=== PATIENT | male | born 1945 | race American Indian/Alaskan Native ===

== ENCOUNTER 2022-07-29 10:11 | Inpatient (IN) | payer MEDICARE ==
[2022-07-29] MEDS ORDERED: SODIUM CHLORIDE 0.9% 500 ML IVPB IV ONE (12:37)
--- NOTE | 2022-07-29 12:50 | Emergency Department Report ---
ED General Adult HPI - General Chief complaint: Dyspnea/Respdistress Stated complaint: GIA Time Seen by Provider: 07/29/22 11:33 Source: patient, EMS Mode of arrival: Stretcher Limitations: Physical Limitation - History of Present Illness Initial comments: The patient presents to the emergency department via EMS for difficulty in breathing that is been present for the last couple of days. The patient was recently discharged from [facility] on the third of this month. Patient's states that patient has had difficulty in breathing without chest pain for the last couple of days. Patient is now able to add to history. Initial evaluation the patient is on O2 for comfort and has a blood pressure of 97/76. -: unknown Severity scale (0 -10): 0 Consistency: constant Improves with: none Worsens with: none Associated Symptoms: denies other symptoms Treatments Prior to Arrival: none - Related Data Allergies Allergy/AdvReac Type Severity Reaction Status Date / Time Penicillins AdvReac Unknown Verified 07/29/22 10:26 ED Review of Systems ROS: Stated complaint: GIA Other details as noted in HPI Comment: All other systems reviewed and negative ED Physical Exam - General Limitations: Physical Limitation General appearance: obtunded - Head Head exam: Present: atraumatic, normocephalic - Eye Eye exam: Present: normal appearance, PERRL, EOMI - ENT ENT exam: Present: mucous membranes dry - Respiratory Respiratory exam: Present: decreased breath sounds. Absent: respiratory distress - Cardiovascular Cardiovascular Exam: Present: normal rhythm, tachycardia - GI/Abdominal GI/Abdominal exam: Present: soft, normal bowel sounds. 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 Absent: rash ED Course Vital Signs 07/29/22 07/29/22 07/29/22 10:23 11:26 11:30 Temperature 97.9 F Pulse Rate 111 H 112 H Respiratory 14 25 H Rate Blood Pressure 103/72 Blood Pressure 114/76 [Left] O2 Sat by Pulse 100 96 100 Oximetry 07/29/22 07/29/22 07/29/22 12:30 13:01 13:31 Temperature Pulse Rate 111 H 109 H 130 H Respiratory 21 48 H 43 H Rate Blood Pressure 102/76 99/76 100/74 Blood Pressure [Left] O2 Sat by Pulse 100 100 100 Oximetry 07/29/22 07/29/22 07/29/22 13:59 14:01 14:31 Temperature Pulse Rate 107 H 106 H 125 H Respiratory 21 37 H 36 H Rate Blood Pressure 109/78 116/80 Blood Pressure 109/78 [Left] O2 Sat by Pulse 100 100 100 Oximetry 07/29/22 07/29/22 07/29/22 15:01 15:24 15:31 Temperature 97.5 F L Pulse Rate 127 H 133 H 102 H Respiratory 32 H 18 34 H Rate Blood Pressure 119/82 126/89 Blood Pressure 126/89 [Left] O2 Sat by Pulse 100 99 98 Oximetry 07/29/22 07/29/22 07/29/22 15:40 16:00 16:01 Temperature 97.5 F L Pulse Rate 102 H 130 H Respiratory 45 H 40 H Rate Blood Pressure 108/87 Blood Pressure 124/68 [Left] O2 Sat by Pulse 99 97 Oximetry 07/29/22 07/29/22 07/29/22 16:31 17:01 17:18 Temperature 97.8 F Pulse Rate 136 H 136 H 104 H Respiratory 30 H 23 18 Rate Blood Pressure 115/94 130/89 Blood Pressure 124/60 [Left] O2 Sat by Pulse 100 99 99 Oximetry ED Medical Decision Making - Lab Data Result diagrams: 07/29/22 14:57 07/29/22 14:57 Lab Results 07/29/22 07/29/22 07/29/22 Range/Units 14:57 14:57 14:57 WBC 10.9 (4.5-11.0) K/mm3 RBC 3.47 L (3.65-5.03) M/mm3 Hgb 9.5 L (11.8-15.2) gm/dl Hct 29.9 L (35.5-45.6) % MCV 86 (84-94) fl MCH 27 L (28-32) pg MCHC 32 (32-34) % RDW 16.7 H (13.2-15.2) % Plt Count 333 (140-440) K/mm3 Lymph % (Auto) 16.0 (13.4-35.0) % [place] % (Auto) 10.2 H (0.0-7.3) % Eos % (Auto) 0.2 (0.0-4.3) % Baso % (Auto) 0.4 (0.0-1.8) % Lymph # (Auto) 1.7 (1.2-5.4) K/mm3 [place] # (Auto) 1.1 H (0.0-0.8) K/mm3 Eos # (Auto) 0.0 (0.0-0.4) K/mm3 Baso # (Auto) 0.0 (0.0-0.1) K/mm3 Seg Neutrophils % 73.2 H (40.0-70.0) % Seg Neutrophils # 8.0 H (1.8-7.7) K/mm3 Sodium 139 (137-145) mmol/L Potassium 5.2 H (3.6-5.0) mmol/L Chloride 104.5 (98-107) mmol/L Carbon Dioxide 17 L (22-30) mmol/L Anion Gap 23 mmol/L BUN 74 H (9-20) mg/dL Creatinine 2.4 H (0.8-1.3) mg/dL Estimated GFR 27 ml/min BUN/Creatinine Ratio 31 % Glucose 113 H (75-100) mg/dL Lactic Acid 2.90 H* (0.7-2.0) mmol/L Calcium 9.4 (8.4-10.2) mg/dL Magnesium 2.90 H (1.7-2.3) mg/dL Total Bilirubin 1.60 H (0.1-1.2) mg/dL AST 148 H (5-40) units/L ALT 111 H (7-56) units/L Alkaline Phosphatase 255 H (35-129) units/L Troponin T 0.484 H* (0.00-0.029) ng/mL NT-Pro-B Natriuret Pep 92354 H (0-900) pg/mL Total Protein 7.4 (6.3-8.2) g/dL Albumin 3.7 L (3.9-5) g/dL Albumin/Globulin Ratio 1.0 % Triglycerides 59 (2-149) mg/dL Cholesterol 108 (50-199) mg/dL LDL Cholesterol Direct 68 (50-130) mg/dL HDL Cholesterol 35 L (40-59) mg/dL Cholesterol/HDL Ratio 3.08 % Urine Color (Yellow) Urine Turbidity (Clear) Specific [place] (Man) (1.003-1.030) Ur Protein (Man) (Negative) mg/dL Ur Ketones (Man) (Negative) Ur Nitrite (Man) (Negative) Urine Bilirubin (Man) (Negative) Urine Ictotest Leukocyte Esterase (Man) (Negative) Urine WBC (Auto) (0.0-6.0) /HPF Urine RBC (Auto) (0.0-6.0) /HPF Urine RBC (Manual) (Negative) Urine WBC Clumps /HPF Ur Yeast w Hyphae /HPF Urine Yeast (Budding) /HPF 07/29/22 07/29/22 Range/Units 17:01 Unknown WBC (4.5-11.0) K/mm3 RBC (3.65-5.03) M/mm3 Hgb (11.8-15.2) gm/dl Hct (35.5-45.6) % MCV (84-94) fl MCH (28-32) pg MCHC (32-34) % RDW (13.2-15.2) % Plt Count (140-440) K/mm3 Lymph % (Auto) (13.4-35.0) % [place] % (Auto) (0.0-7.3) % Eos % (Auto) (0.0-4.3) % Baso % (Auto) (0.0-1.8) % Lymph # (Auto) (1.2-5.4) K/mm3 [place] # (Auto) (0.0-0.8) K/mm3 Eos # (Auto) (0.0-0.4) K/mm3 Baso # (Auto) (0.0-0.1) K/mm3 Seg Neutrophils % (40.0-70.0) % Seg Neutrophils # (1.8-7.7) K/mm3 Sodium (137-145) mmol/L Potassium (3.6-5.0) mmol/L Chloride (98-107) mmol/L Carbon Dioxide (22-30) mmol/L Anion Gap mmol/L BUN (9-20) mg/dL Creatinine (0.8-1.3) mg/dL Estimated GFR ml/min BUN/Creatinine Ratio % Glucose (75-100) mg/dL Lactic Acid 3.60 H* (0.7-2.0) mmol/L Calcium (8.4-10.2) mg/dL Magnesium (1.7-2.3) mg/dL Total Bilirubin (0.1-1.2) mg/dL AST (5-40) units/L ALT (7-56) units/L Alkaline Phosphatase (35-129) units/L Troponin T (0.00-0.029) ng/mL NT-Pro-B Natriuret Pep (0-900) pg/mL Total Protein (6.3-8.2) g/dL Albumin (3.9-5) g/dL Albumin/Globulin Ratio % Triglycerides (2-149) mg/dL Cholesterol (50-199) mg/dL LDL Cholesterol Direct (50-130) mg/dL HDL Cholesterol (40-59) mg/dL Cholesterol/HDL Ratio % Urine Color Yellow (Yellow) Urine Turbidity Turbid (Clear) Specific [place] (Man) 1.020 (1.003-1.030) Ur Protein (Man) 2+ (Negative) mg/dL Ur Ketones (Man) 5mg/dl (Negative) Ur Nitrite (Man) Negative (Negative) Urine Bilirubin (Man) Negative (Negative) Urine Ictotest Not Reportable Leukocyte Esterase (Man) Moderate (Negative) Urine WBC (Auto) > 182.0 H (0.0-6.0) /HPF Urine RBC (Auto) > 182.0 (0.0-6.0) /HPF Urine RBC (Manual) 3+ (Negative) Urine WBC Clumps 3+ /HPF Ur Yeast w Hyphae 3+ /HPF Urine Yeast (Budding) 2+ /HPF - EKG Data -: EKG Interpreted by Id EKG shows normal: sinus rhythm Rate: tachycardia - Radiology Data Radiology results: report reviewed - Medical Decision Making IV fluids and IV antibiotics initiated Critical Care Time: Yes Critical care time in (mins) excluding proc time.: 35 Critical care attestation.: If time is entered above; I have spent that time in minutes in the direct care of this critically ill patient, excluding procedure time. ED Disposition Clinical Impression: GIBRAN (acute kidney injury), Sepsis, CHF (congestive heart failure) Disposition: 09 ADMITTED INPATIENT Is pt being admited?: Yes Does the pt Need Aspirin: No Condition: Stable Referrals: THEODORE OBRIEN MD [Primary Care Provider] - 3-5 Days
--- NOTE | 2022-07-29 13:08 | XRay Report ---
CHEST 1 VIEW 07/29/2022 12:43 PM INDICATION / CLINICAL INFORMATION: sob. COMPARISON: None available. FINDINGS: SUPPORT DEVICES: None. HEART / MEDIASTINUM: Borderline to mild cardiomegaly LUNGS / PLEURA: Moderate pulmonary venous congestion and small pleural effusions are suspected. Mild bibasilar atelectasis. No pneumothorax. ADDITIONAL FINDINGS: No significant additional findings. IMPRESSION: 1. Mild CHF Signer Name: Harvey Segovia Jr, MD Signed: 07/29/2022 1:03 PM Workstation Name: [id number]
[2022-07-29 15:26] LABS: Basophils % (Auto) 0.4 % (0.0-1.8); Eosinophils % (Auto) 0.2 % (0.0-4.3); Hematocrit 29.9 % (35.5-45.6); Hemoglobin 9.5 gm/dl (11.8-15.2); Lymphocytes # (Auto) 1.7 K/mm3 (1.2-5.4); Mean Corpuscular HGB Conc 32 % (32-34); Mean Corpuscular Volume 86 fl (84-94); Monocytes # (Auto) 1.1 K/mm3 (0.0-0.8); Monocytes % (Auto) 10.2 % (0.0-7.3); Platelet Count 333 K/mm3 (140-440); Red Blood Count 3.47 M/mm3 (3.65-5.03); Red Cell Distribution Width 16.7 % (13.2-15.2)
[2022-07-29 15:45] LABS: Albumin 3.7 g/dL (3.9-5); Calcium 9.4 mg/dL (8.4-10.2)
[2022-07-29 15:49] LABS: RBC,Urine > 182.0 /HPF (0.0-6.0); WBC,Urine > 182.0 /HPF (0.0-6.0)
[2022-07-29 15:50] LABS: Color,Urine Yellow (Yellow)
[2022-07-29 16:26] LABS: Chol/HDL Ratio 3.08 %
[2022-07-29] MEDS ORDERED: SODIUM CHLORIDE 0.9% 1000 ML 1,000 ML IV ONE (16:31)
[2022-07-29] MEDS: SODIUM CHLORIDE 0.9% 1000 ML 1,000 ML IV ONE ×4 (17:04→17:21)
--- NOTE | 2022-07-29 17:22 | History and Physical Report ---
History of Present Illness Chief complaint: I do not feel good and I am short of breath History of present illness: 76 YO Male with Vascular Dementia, Cerebral Atherosclerosis presents ED for evaluation. Patient reports "I do not feel good and I am short of breath. Patient provides minimal history and is assisted by his and providing history who was at bedside during exam and interview. Patient states that he has experienced generalized weakness, subjective fever, and shortness of breath over the past few days with persistent symptoms over the same timeframe. Patient acknowledges decreased exercise tolerance, dyspnea on exertion, tension at rest, orthopnea, paroxysmal nocturnal dyspnea, subjective fever, subjective weight gain, as well as lower extremity edema. EMS was notified and upon arriva l the patient was found to be in distress with a pulse oximetry of 88% on room air. Patient was placed on submental oxygen and transported to [facility] for further care and evaluation of the aforementioned symptoms. The patient was seen and evaluated in the emergency department. All lab and imaging studies reviewed. Patient found to have a pulse oximetry of 87% on room air which is consistent with acute hypoxemic respiratory failure. Patient also found to have urinary tract infection complicated by sepsis, metabolic acidosis, toxic metabolic encephalopathy, GIBRAN with ATN, as well as symptoms and lab findings consistent with CHF decompensation. Patient admitted to IMCU and initiated on sepsis protocol as well as CHF protocol. Patient denies chills, chest pain, palpitation, productive cough, skin rash, recent contact, known exposure to COVID-19. No prior admission for review. No medication listed at time of admission for reconciliation. Advanced care planning conducted in ED. Past History Past Medical History: other (See HPI) Past Surgical History: No surgical history, Other (Reviewed) Social history: , lives with family Family history: hypertension Medications and Allergies Allergies Allergy/AdvReac Type Severity Reaction Status Date / Time Penicillins AdvReac Unknown Verified 07/29/22 10:26 Active Meds: Active Medications Sodium Chloride (Nacl 0.9% 1000 Ml) 1,000 mls @ 999 mls/hr IV BOLUS ONE Stop: 07/29/22 17:31 Last Admin: 07/29/22 17:21 Dose: Not Given Sodium Chloride (Nacl 0.9% 1000 Ml) 1,000 mls @ 999 mls/hr IV BOLUS ONE Stop: 07/29/22 17:31 Last Admin: 07/29/22 17:21 Dose: Not Given Sodium Chloride (Nacl 0.9% 1000 Ml) 1,000 mls @ 999 mls/hr IV BOLUS ONE Stop: 07/29/22 17:31 Last Admin: 07/29/22 17:04 Dose: 999 mls/hr Review of Systems Constitutional: weight gain, fever, weakness, no weight loss, no chills Ears, nose, mouth and throat: no ear discharge, no tinnitis, no decreased hearing, no nose pain, no nasal discharge Cardiovascular: orthopnea, shortness of breath, dyspnea on exertion, paroxysmal nocturnal dyspnea, decreased exercise tolerance, no chest pain Respiratory: no cough, no cough with sputum, no excessive sputum, no shortness of breath Gastrointestinal: no abdominal pain, no vomiting, no diarrhea, no constipation Genitourinary Male: no hematuria, no flank pain, no discharge, no urinary hesitancy, no nocturia, no incontinence Rectal: no pain, no incontinence, no bleeding Musculoskeletal: no neck pain, no shooting arm pain, no shooting leg pain Integumentary: no rash, no redness, no sores, no wounds, no boils Neurological: no head injury, no paralysis, no parathesias, no numbness, no tingling, no syncope Psychiatric: no anxiety, no memory loss, no sleep disturbances, no insomnia, no change in appetite Endocrine: no cold intolerance, no polyphagia, no polyuria, no excessive sweating, no weight change Hematologic/Lymphatic: no easy bleeding Allergic/Immunologic: no allergic rhinitis, no wheezing Exam - Constitutional Vitals: Temp Pulse Resp BP Pulse Ox 97.8 F 104 H 18 124/60 99 07/29/22 17:18 07/29/22 17:18 07/29/22 17:18 07/29/22 17:18 07/29/22 17:18 General appearance: Present: mild distress - EENT Eyes: Present: PERRL ENT: hearing intact, clear oral mucosa - Neck Neck: Present: supple, normal ROM, masses or JVD - Respiratory Respiratory effort: normal Respiratory: bilateral: CTA - Cardiovascular Heart Sounds: Present: S1 & S2. Absent: rub, click - Extremities Extremities: pulses symmetrical, No edema Extremity abnormal: edema Peripheral Pulses: within normal limits - Abdominal General gastrointestinal: Present: soft, non-tender, non-distended, normal bowel sounds Male genitourinary: Present: normal - Integumentary Integumentary: Present: clear, warm, dry - Musculoskeletal Musculoskeletal: gait normal, strength equal bilaterally - Psychiatric Psychiatric: appropriate mood/affect, intact judgment & insight - Neurologic Neurologic: CNII-XII intact, moves all extremities HEART Score - HEART Score Troponin: Troponin T 0.484 ng/mL (0.00-0.029) H* 07/29/22 14:57 Results - Labs CBC & Chem 7: 07/29/22 14:57 07/29/22 14:57 Labs: Abnormal lab results 07/29/22 07/29/22 07/29/22 Range/Units 14:57 14:57 14:57 RBC 3.47 L (3.65-5.03) M/mm3 Hgb 9.5 L (11.8-15.2) gm/dl Hct 29.9 L (35.5-45.6) % MCH 27 L (28-32) pg RDW 16.7 H (13.2-15.2) % [place] % (Auto) 10.2 H (0.0-7.3) % [place] # (Auto) 1.1 H (0.0-0.8) K/mm3 Seg Neutrophils % 73.2 H (40.0-70.0) % Seg Neutrophils # 8.0 H (1.8-7.7) K/mm3 Potassium 5.2 H (3.6-5.0) mmol/L Carbon Dioxide 17 L (22-30) mmol/L BUN 74 H (9-20) mg/dL Creatinine 2.4 H (0.8-1.3) mg/dL Glucose 113 H (75-100) mg/dL Lactic Acid 2.90 H* (0.7-2.0) mmol/L Magnesium 2.90 H (1.7-2.3) mg/dL Total Bilirubin 1.60 H (0.1-1.2) mg/dL AST 148 H (5-40) units/L ALT 111 H (7-56) units/L Alkaline Phosphatase 255 H (35-129) units/L Troponin T 0.484 H* (0.00-0.029) ng/mL NT-Pro-B Natriuret Pep 02372 H (0-900) pg/mL Albumin 3.7 L (3.9-5) g/dL HDL Cholesterol 35 L (40-59) mg/dL Urine WBC (Auto) (0.0-6.0) /HPF 07/29/22 Range/Units Unknown RBC (3.65-5.03) M/mm3 Hgb (11.8-15.2) gm/dl Hct (35.5-45.6) % MCH (28-32) pg RDW (13.2-15.2) % [place] % (Auto) (0.0-7.3) % [place] # (Auto) (0.0-0.8) K/mm3 Seg Neutrophils % (40.0-70.0) % Seg Neutrophils # (1.8-7.7) K/mm3 Potassium (3.6-5.0) mmol/L Carbon Dioxide (22-30) mmol/L BUN (9-20) mg/dL Creatinine (0.8-1.3) mg/dL Glucose (75-100) mg/dL Lactic Acid (0.7-2.0) mmol/L Magnesium (1.7-2.3) mg/dL Total Bilirubin (0.1-1.2) mg/dL AST (5-40) units/L ALT (7-56) units/L Alkaline Phosphatase (35-129) units/L Troponin T (0.00-0.029) ng/mL NT-Pro-B Natriuret Pep (0-900) pg/mL Albumin (3.9-5) g/dL HDL Cholesterol (40-59) mg/dL Urine WBC (Auto) > 182.0 H (0.0-6.0) /HPF Assessment and Plan - Patient Problems (1) Sepsis Current Visit: Yes Status: Acute Plan to address problem: Sepsis protocol: Chest x-ray, urinalysis, CBC, CMP, IV antibiotic therapy, IV for resuscitation therapy, monitor urine output culture, monitor fluid balance, maintain mean arterial pressure greater than equal to 65, admit to IMCU. (2) Acute hypoxemic respiratory failure Current Visit: Yes Status: Acute Plan to address problem: Chest x-ray, supplemental oxygen, nebulizer therapy, noninvasive positive pressure ventilation as clinically indicated, (3) UTI (urinary tract infection) Current Visit: Yes Status: Acute Qualifiers: Encounter type: initial encounter Plan to address problem: Urinalysis, IV antibiotic therapy. (4) Metabolic acidosis Current Visit: Yes Status: Acute Plan to address problem: Treat sepsis, IV fluid resuscitation therapy as clinically indicated, BMP, repeat BMP in a.m. (5) Cardiorenal syndrome Current Visit: Yes Status: Acute Qualifiers: Heart failure presence: with heart failure Plan to address problem: Nephrology team consulted, afterload reduction, supportive care. (6) Vascular dementia Current Visit: Yes Status: Acute Plan to address problem: Verbal prompting, verbal redirection, benzodiazepine therapy as clinically indicated. (7) Cerebral atherosclerosis Current Visit: Yes Status: Acute Plan to address problem: Antiplatelet therapy as clinically indicated, supportive care. (8) Acute kidney injury (GIBRAN) with acute tubular necrosis (ATN) Current Visit: Yes Status: Acute Plan to address problem: IV fluid resuscitation therapy, BMP, repeat BMP in a.m. to monitor serum creatinine as well as GFR, nephrology team consulted. (9) DVT prophylaxis Current Visit: Yes Status: Acute Plan to address problem: SCDs bilateral lower extremities while in bed (10) Advance care planning Current Visit: Yes Status: Acute Plan to address problem: Disease education data, care plan discussed, diagnosis discussed, prognosis discussed, patient is full code. +30 minutes. (11) Preventative health care Current Visit: Yes Status: Acute Plan to address problem: Patient and family counseled regarding home safety precautions, supportive care, risk factor reduction, outpatient follow-up with primary care physician for all age and risk factor appropriate screening test. +30 minutes.
[2022-07-29] MEDS ORDERED: oxyCODONE /ACETAMINOPHEN 5-325MG TAB PO PRN (17:23)
[2022-07-29] MEDS ORDERED: ACETAMINOPHEN 325 MG TAB PO PRN ×2 (17:23→17:27)
[2022-07-29] MEDS ORDERED: HYDROmorphone 0.5 MG/0.5 ML INJ IV PRN ×2 (17:23→17:27)
[2022-07-29] MEDS ORDERED: ALBUTEROL 2.5 MG/3 ML NEBU IH PRN (17:23)
[2022-07-29] MEDS ORDERED: SODIUM CHLORIDE 0.9% 1000 ML IV SOLN IV ONE (17:27)
[2022-07-29] MEDS: FUROSEMIDE 20 MG/2 ML INJ IV SCH (18:46)
[2022-07-30 00:28] LABS: ABG HCO3 13.1 mmol/L (20.0-26.0); ABG Methemoglobin 0.4 % (0.0-1.5); ABG Oxygen Saturation 97.9 % (95.0-99.0); ABG PCO2 23.7 mm Hg; ABG PH 7.361 pH Units (7.350-7.450)
[2022-07-30 04:32] LABS: Basophils % (Auto) 0.2 % (0.0-1.8); Eosinophils % (Auto) 0.2 % (0.0-4.3); Hematocrit 28.4 % (35.5-45.6); Hemoglobin 9.4 gm/dl (11.8-15.2); Lymphocytes # (Auto) 1.2 K/mm3 (1.2-5.4); Mean Corpuscular HGB Conc 33 % (32-34); Mean Corpuscular Volume 85 fl (84-94); Monocytes % (Auto) 9.5 % (0.0-7.3); Platelet Count 280 K/mm3 (140-440); Red Blood Count 3.33 M/mm3 (3.65-5.03); Red Cell Distribution Width 16.8 % (13.2-15.2)
[2022-07-30 05:02] LABS: Albumin 3.6 g/dL (3.9-5)
[2022-07-30] MEDS: FUROSEMIDE 20 MG/2 ML INJ IV SCH ×2 (06:06→18:37)
--- NOTE | 2022-07-30 07:59 | Progress Note ---
Assessment and Plan Assessment and plan: History of present illness: 76 YO Male with Vascular Dementia, Cerebral Atherosclerosis presents ED for evaluation. Patient reports "I do not feel good and I am short of breath. Patient provides minimal history and is assisted by his and providing history who was at bedside during exam and interview. Patient states that he has experienced generalized weakness, subjective fever, and shortness of breath over the past few days with persistent symptoms over the same timeframe. Patient acknowledges decreased exercise tolerance, dyspnea on exertion, tension at rest, orthopnea, paroxysmal nocturnal dyspnea, subjective fever, subjective weight gain, as well as lower extremity edema. EMS was notified and upon arrival the patient was found to be in distress with a pulse oximetry of 88% on room air. Patient was placed on submental oxygen and transported to [facility] for further care and evaluation of the aforementioned symptoms. The patient was seen and evaluated in the emergency department. All lab and imaging studies reviewed. Patient found to have a pulse oximetry of 87% on room air which is consistent with acute hypoxemic respiratory failure. Patient also found to have urinary tract infection complicated by sepsis, metabolic acidosis, toxic metabolic encephalopathy, GIBRAN with ATN, as well as symptoms and lab findings consistent with CHF decompensation. Patient admitted to IM and initiated on sepsis protocol as well as CHF protocol. Patient denies chills, chest pain, palpitation, productive cough, skin rash, recent contact, known exposure to C OVID-19. No prior admission for review. No medication listed at time of admission for reconciliation. Advanced care planning conducted in ED. Assessment and Plan: #Sepsis POA #Urinary tract infection - LA 4.2, tachycardic, source urinary - UA wbc: 182 - AB.36/23/107/13 on 21%fio2 - levaquin IV for empiric tx. allergy to PCN noteds - IVF - Bcx, UCx #Acute hypoxic respiratory failure #Chronic Congestive heart Failure - currently on 2l/min nc. - cxr: mild chf - resume home lasix - echo pending #Acute kidney injury with acute tubular necrosis #Metabolic acidosis #Cardiorenal syndrome #hyperkalemia - IVF rehydration - Cr: 2.4 on admisison - sodium bicarb gtt x 1 bag ordered - nephrology consultation - trend serial bmp. - renal US: negative for acute findings - cr 5.5, tx with kionex, insulin #Transaminitis - monitor - avoid hepatotoxins. #Vascular dementia #Cerebral atherosclerosis #Type 2 Diabetes with hyperglycemia - takes hanna and hadley per - SSI and lantus while hospitalized dispo: transfer to floor. The high probability of a clinically significant, sudden or life threatening deterioration of the [multi] system(s) required my full and direct attention, intervention and personal management. The aggregate critical care time was [60] minutes. This time is in addition to time spent performing reported procedures but includes the following: [x] Data Review and interpretation [x] Patient assessment and monitoring of vital signs [x] Documentation [x] Medication orders and management History Interval history: Resting comfortably on bed side encounter. Patient has a clear history of dementia and only able to communicate simple wishes. Patient present at bedside and able to provide medical background. Per patient was hospitalized at [facility] approximately 1 month ago. He was hospitalized for hematuria at the time and was incidentally found to have congestive heart jimmy lure. He was treated with Lasix and discharged. Hospitalist Physical - Physical exam Narrative exam: Physical Exam: VITAL SIGNS: Reviewed. GENERAL: The patient appears normally developed, Vital signs as documented. HEAD: No signs of head trauma. EYES: Pupils are equal. Extraocular motions intact. EARS: Hearing grossly intact. MOUTH: Oropharynx is normal. NECK: No adenopathy, no JVD. CHEST: Chest with clear breath sounds bilaterally. No wheezes, rales, or rhonchi. CARDIAC: Regular rate and rhythm. S1 and S2, without murmurs, gallops, or rubs. VASCULAR: No Edema. Peripheral pulses normal and equal in all extremities. ABDOMEN: Soft, non tender and non distended. No rebound or guarding, and no masses palpated. Bowel Sounds normal. MUSCULOSKELETAL: Good range of motion of all major joints. Extremities without clubbing, cyanosis or edema. NEUROLOGIC EXAM: Alert and oriented x 4. no focal sensory or strength deficits. PSYCHIATRIC: Mood normal. SKIN: detail exam as documented in skin assessment - Constitutional Vitals: Temp Pulse Resp BP Pulse Ox 98.4 F 100 H 24 95/68 98 07/30/22 03:43 07/30/22 06:00 07/30/22 06:00 07/30/22 06:00 07/30/22 06:00 General appearance: Present: mild distress HEART Score - HEART Score Troponin: Troponin T 0.484 ng/mL (0.00-0.029) H* 07/29/22 14:57 Results - Labs CBC & Chem 7: 07/30/22 03:59 07/30/22 03:59 Labs: Laboratory Last Values WBC 10.9 K/mm3 (4.5-11.0) 07/30/22 03:59 RBC 3.33 M/mm3 (3.65-5.03) L 07/30/22 03:59 Hgb 9.4 gm/dl (11.8-15.2) L 07/30/22 03:59 Hct 28.4 % (35.5-45.6) L 07/30/22 03:59 MCV 85 fl (84-94) 07/30/22 03:59 MCH 28 pg (28-32) 07/30/22 03:59 MCHC 33 % (32-34) 07/30/22 03:59 RDW 16.8 % (13.2-15.2) H 07/30/22 03:59 Plt Count 280 K/mm3 (140-440) 07/30/22 03:59 Lymph % (Auto) 11.0 % (13.4-35.0) L 07/30/22 03:59 Branch % (Auto) 9.5 % (0.0-7.3) H 07/30/22 03:59 Eos % (Auto) 0.2 % (0.0-4.3) 07/30/22 03:59 Baso % (Auto) 0.2 % (0.0-1.8) 07/30/22 03:59 Lymph # (Auto) 1.2 K/mm3 (1.2-5.4) 07/30/22 03:59 Branch # (Auto) 1.0 K/mm3 (0.0-0.8) H 07/30/22 03:59 Eos # (Auto) 0.0 K/mm3 (0.0-0.4) 07/30/22 03:59 Baso # (Auto) 0.0 K/mm3 (0.0-0.1) 07/30/22 03:59 Seg Neutrophils % 79.1 % (40.0-70.0) H 07/30/22 03:59 Seg Neutrophils # 8.6 K/mm3 (1.8-7.7) H 07/30/22 03:59 ABG pH 7.361 pH Units (7.350-7.450) 07/29/22 23:55 ABG pCO2 23.7 mm Hg 07/29/22 23:55 ABG pO2 107.0 mm Hg (80.0-90.0) H 07/29/22 23:55 ABG HCO3 13.1 mmol/L (20.0-26.0) L 07/29/22 23:55 ABG O2 Saturation 97.9 % (95.0-99.0) 07/29/22 23:55 ABG O2 Content 12.0 (0.0-44) 07/29/22 23:55 ABG Base Excess -11.0 mmol/L (-2.0-3.0) L 07/29/22 23:55 ABG Hemoglobin 8.8 gm/dl (14.0-18.0) L 07/29/22 23:55 ABG Carboxyhemoglobin 2.0 % (0.0-5.0) 07/29/22 23:55 ABG Methemoglobin 0.4 % (0.0-1.5) 07/29/22 23:55 Oxyhemoglobin 95.6 % (95.0-99.0) 07/29/22 23:55 FiO2 21 % 07/29/22 23:55 Sodium 137 mmol/L (137-145) 07/30/22 03:59 Potassium 5.5 mmol/L (3.6-5.0) H 07/30/22 03:59 Chloride 101.6 mmol/L (98-107) 07/30/22 03:59 Carbon Dioxide 15 mmol/L (22-30) L 07/30/22 03:59 Anion Gap 26 mmol/L 07/30/22 03:59 BUN 80 mg/dL (9-20) H 07/30/22 03:59 Creatinine 2.5 mg/dL (0.8-1.3) H 07/30/22 03:59 Estimated GFR 31 ml/min 07/30/22 03:59 BUN/Creatinine Ratio 32 % 07/30/22 03:59 Glucose 159 mg/dL (75-100) H 07/30/22 03:59 POC Glucose 154 mg/dL (70-105) H 07/30/22 05:48 Lactic Acid 3.30 mmol/L (0.7-2.0) H* 07/30/22 03:59 Calcium 9.0 mg/dL (8.4-10.2) 07/30/22 03:59 Magnesium 2.90 mg/dL (1.7-2.3) H 07/29/22 14:57 Total Bilirubin 1.30 mg/dL (0.1-1.2) H 07/30/22 03:59 AST 176 units/L (5-40) H 07/30/22 03:59 ALT 151 units/L (7-56) H 07/30/22 03:59 Alkaline Phosphatase 265 units/L (35-129) H 07/30/22 03:59 Troponin T 0.484 ng/mL (0.00-0.029) H* 07/29/22 14:57 NT-Pro-B Natriuret Pep 27468 pg/mL (0-900) H 07/29/22 14:57 Total Protein 6.9 g/dL (6.3-8.2) 07/30/22 03:59 Albumin 3.6 g/dL (3.9-5) L 07/30/22 03:59 Albumin/Globulin Ratio 1.1 % 07/30/22 03:59 Triglycerides 59 mg/dL (2-149) 07/29/22 14:57 Cholesterol 108 mg/dL (50-199) 07/29/22 14:57 LDL Cholesterol Direct 68 mg/dL (50-130) 07/29/22 14:57 HDL Cholesterol 35 mg/dL (40-59) L 07/29/22 14:57 Cholesterol/HDL Ratio 3.08 % 07/29/22 14:57 Urine Color Yellow (Yellow) 07/29/22 Unknown Urine Turbidity Turbid (Clear) 07/29/22 Unknown Specific [place] (Man) 1.020 (1.003-1.030) 07/29/22 Unknown Ur Protein (Man) 2+ mg/dL (Negative) 07/29/22 Unknown Ur Ketones (Man) 5mg/dl (Negative) 07/29/22 Unknown Ur Nitrite (Man) Negative (Negative) 07/29/22 Unknown Urine Bilirubin (Man) Negative (Negative) 07/29/22 Unknown Urine Ictotest Not Reportable 07/29/22 Unknown Leukocyte Esterase (Man) Moderate (Negative) 07/29/22 Unknown Urine WBC (Auto) > 182.0 /HPF (0.0-6.0) H 07/29/22 Unknown Urine RBC (Auto) > 182.0 /HPF (0.0-6.0) 07/29/22 Unknown Urine RBC (Manual) 3+ (Negative) 07/29/22 Unknown Urine WBC Clumps 3+ /HPF 07/29/22 Unknown Ur Yeast w Hyphae 3+ /HPF 07/29/22 Unknown Urine Yeast (Budding) 2+ /HPF 07/29/22 Unknown Blood Type O POSITIVE 07/29/22 18:02 Antibody Screen Negative 07/29/22 18:02 Microbiology: Microbiology 07/29/22 14:57 Peripheral/Venous Blood Culture - Preliminary Culture in Progress 07/29/22 14:57 Peripheral/Venous Blood Culture - Preliminary Culture in Progress Ojeda/IV: Voiding Method Indwelling Catheter Active Medications - Current Medications Current Medications: Generic Name Dose Route Start Last Admin Trade Name Freq PRN Reason Stop Dose Admin Acetaminophen 650 mg 07/29/22 17:27 Acetaminophen 325 Mg Tab PO Q6H PRN Pain, Mild (1-3) Albuterol 2.5 mg 07/29/22 17:23 Albuterol 2.5 Mg/3 Ml Nebu IH Q3HRT PRN Shortness Of Breath Furosemide 20 mg 07/29/22 18:00 07/30/22 06:06 Furosemide 20 Mg/2 Ml Inj IV 20 mg BID@0600,1800 [facility] Administration Hydromorphone HCl 0.5 mg 07/29/22 17:23 Hydromorphone 0.5 Mg/0.5 Ml Inj IV Q13H PRN Pain , Severe (7-10) Hydromorphone HCl 0.25 mg 07/29/22 17:27 Hydromorphone 0.5 Mg/0.5 Ml Inj IV Q4H PRN Pain, Moderate (4-6) Levofloxacin/Dextrose 750 mg in 150 mls @ 100 mls/hr 07/31/22 10:00 Levaquin 750mg/150ml IV Q48HR [facility] Protocol Oxycodone/Acetaminophen 1 tab 07/29/22 17:23 Oxycodone /Acetaminophen 5-325mg Tab PO Q6H PRN Pain, Moderate (4-6) Sodium Chloride 10 ml 07/29/22 22:00 07/29/22 22:00 Sodium Chloride 0.9% 10 Ml Flush Syringe IV 10 ml BID YUSRA Administration Sodium Chloride 10 ml 07/29/22 17:23 Sodium Chloride 0.9% 10 Ml Flush Syringe IV PRN PRN LINE FLUSH
--- NOTE | 2022-07-30 09:25 | Consultation ---
History of Present Illness - Reason for Consult Consult date: 07/30/22 acute renal failure, hyperkalemia - History of Present Illness The patient is a 76 YO male with history of HTN, DM, HLD, CAD, Parkinson's disease, history of TIA, history of PE(previously anticoagulated on Eliquis) and Dementia who presented to [facility] ED 07/29/22 with short of breath. Patient confused, unable to provide any history and there was no family member at the bedside. Per chart, according to his patient has experienced generalized weakness, subjective fever, and shortness of breath over the past few days. Report of decreased exercise tolerance, MURGUIA, Orthopnea, paroxysmal nocturnal dyspnea, subjective fever, subjective weight gain and lower extremity swelling. Upon EMS arrival the patient was found with a pulse oximetry of 88% on room air. Patient was placed on supplemental oxygen and transported to [facility] ED. CXR reported as mild CHF. Labs notable for Hb 9.5, Creat 2.5, K 5.5, BUN 80 and bicarb 15. Patient admitted to IMCU with acute hypoxemic respiratory failure, sepsis, CHF and GIBRAN. Nephrology consulted for further evaluation and treatment of GIBRAN. Past History Past Medical History: other (See HPI) Past Surgical History: No surgical history, Other (Reviewed) Social history: , lives with family Family history: hypertension Medications and Allergies Allergies Allergy/AdvReac Type Severity Reaction Status Date / Time Penicillins AdvReac Unknown Verified 07/29/22 10:26 Home Medications Medication Instructions Recorded Confirmed Last Taken Type Apixaban [Eliquis] 2.5 mg PO BID 07/30/22 07/30/22 Unknown History Ascorbic Acid [Vitamin C with Chana 500 mg PO QDAY 07/30/22 07/30/22 Unknown History Hips] Aspirin [Vazalore] 81 mg PO DAILY 07/30/22 07/30/22 Unknown History AtorvaSTATin [Lipitor] 20 mg PO DAILY 07/30/22 07/30/22 Unknown History Cholecalciferol Vit D3 [Vitamin D3 1,000 unit PO QDAY 07/30/22 07/30/22 Unknown History 1,000 UNIT TAB] Cyanocobalamin (Vitamin B-12) 3,000 mcg PO QDAY 07/30/22 07/30/22 Unknown History [Vitamin B-12] Dapagliflozin Propanediol [Farxiga] 1 tab PO DAILY 07/30/22 07/30/22 Unknown History Finasteride [Proscar] 5 mg PO QDAY 07/30/22 07/30/22 Unknown History Fludrocortisone [Florinef Tab] 0.1 mg PO QDAY 07/30/22 07/30/22 Unknown History Furosemide [Lasix] 20 mg PO 3XW 07/30/22 07/30/22 Unknown History Furosemide [Lasix] 20 mg PO UNK 07/30/22 07/30/22 1 Day Ago History ~07/29/22 Insulin Detemir [Levemir Flextouch] 15 unit SQ DAILY 07/30/22 07/30/22 Unknown History Insulin Glargine [Lantus VIAL] 10 units SQ QHS 07/30/22 07/30/22 Unknown History Insulin Lispro [Humalog] 1 unit SQ ACHS 07/30/22 07/30/22 Unknown History Latanoprost 0.005% 1 drop OU QHS 07/30/22 07/30/22 Unknown History Lisinopril [Zestril] 5 mg PO BID 07/30/22 07/30/22 Unknown History Magnesium 400 mg PO QDAY 07/30/22 07/30/22 Unknown History Midodrine [Proamatine] 10 mg PO Q8HR 07/30/22 07/30/22 Unknown History Nystatin Cream [Mycostatin Cream] 1 applic TP BID 07/30/22 07/30/22 Unknown History Potassium Chloride [K-Dur] 20 meq PO BID 07/30/22 07/30/22 Unknown History Sitagliptin Phosphate [Januvia] 100 mg PO DAILY 07/30/22 07/30/22 Unknown History carvediloL [Coreg] 3.125 mg PO BID 07/30/22 07/30/22 Unknown History oxyCODONE /ACETAMINOPHEN [Percocet 1 tab PO Q4HR PRN 07/30/22 07/30/22 Unknown History 5/325] Active Meds: Active Medications Acetaminophen (Acetaminophen 325 Mg Tab) 650 mg PO Q6H PRN PRN Reason: Pain, Mild (1-3) Albuterol (Albuterol 2.5 Mg/3 Ml Nebu) 2.5 mg IH Q3HRT PRN PRN Reason: Shortness Of Breath Furosemide (Furosemide 20 Mg/2 Ml Inj) 20 mg IV BID@0600,1800 [facility] Last Admin: 07/30/22 06:06 Dose: 20 mg Hydromorphone HCl (Hydromorphone 0.5 Mg/0.5 Ml Inj) 0.5 mg IV Q13H PRN PRN Reason: Pain , Severe (7-10) Hydromorphone HCl (Hydromorphone 0.5 Mg/0.5 Ml Inj) 0.25 mg IV Q4H PRN PRN Reason: Pain, Moderate (4-6) Levofloxacin/Dextrose (Levaquin 750mg/150ml) 750 mg in 150 mls @ 100 mls/hr IV Q48HR [facility]; Protocol Oxycodone/Acetaminophen (Oxycodone /Acetaminophen 5-325mg Tab) 1 tab PO Q6H PRN PRN Reason: Pain, Moderate (4-6) Sodium Chloride (Sodium Chloride 0.9% 10 Ml Flush Syringe) 10 ml IV BID [facility] Last Admin: 07/29/22 22:00 Dose: 10 ml Sodium Chloride (Sodium Chloride 0.9% 10 Ml Flush Syringe) 10 ml IV PRN PRN PRN Reason: LINE FLUSH Review of Systems ROS unobtainable: due to mental status Exam - Vital Signs Vital signs: Vital Signs Temp Pulse Resp BP Pulse Ox 97.9 F 111 H 14 114/76 100 07/29/22 10:23 07/29/22 10:23 07/29/22 10:23 07/29/22 10:23 07/29/22 10:23 Results - Lab Results 07/30/22 03:59 07/30/22 03:59 Most recent lab results ABG pH 7.361 pH Units (7.350-7.450) 07/29/22 23:55 ABG pCO2 23.7 mm Hg 07/29/22 23:55 ABG pO2 107.0 mm Hg (80.0-90.0) H 07/29/22 23:55 ABG HCO3 13.1 mmol/L (20.0-26.0) L 07/29/22 23:55 ABG O2 Saturation 97.9 % (95.0-99.0) 07/29/22 23:55 Calcium 9.0 mg/dL (8.4-10.2) 07/30/22 03:59 Magnesium 2.90 mg/dL (1.7-2.3) H 07/29/22 14:57 Assessment and Plan 1. Acute kidney injury: Vasomotor GIBRAN in the setting of hypotension/CHF/sepsis. Cardiorenal syndrome. ATN. Baseline renal function unknown. Renal US negative for hydro/stone. Urine studies ordered. Monitor renal function. Renal prognosis is guarded. Avoid nephrotoxic agents. Meds dosage based on GFR. 2. FEN: Hyperkalemia, Kayexalate, monitor. Anion-gap Metabolic acidosis, Sod bicarb, monitor. Diuretics as needed. Replete lytes as needed. Monitor lytes and volume status. 3. Sepsis, POA: Likely 2/2 Urinary tract infection. On IV Levaquin. Follow cultures. 4. Acute hypoxic respiratory failure, POA: 2/2 Congestive heart Failure. NC O2. Diuretics. Followed by Cards. 5. Elevated Transaminases, POA: Trend. 6. Type 2 Diabetes with hyperglycemia, POA: SSI and lantus. 7. Normocytic anemia, POA: Trend. 8. Dementia. Subjective: Patient was seen and examined at the bedside. Examination: General appearance: well-developed, appears stated age, not in distress HEENT: no icterus Neck: trachea midline Respiratory: decreased breath sounds Heart: S1S2, no murmur Abdomen: soft, bowel sounds heard, NT, no palpable mass Integumentary: no obvious rash Neurologic: conversing, able to move extremities, confused Ext: 1+ LE and dependent edema noted, L BKA
--- NOTE | 2022-07-30 09:31 | Electrocardiograph Report ---
[facility] Test Date: 2022-07-29 Test Time: 12:11:56 Pat Name: STIVEN ARTEAGA Department: Room: A265 1 Gender: M [employer] Specialist: NURSE : [id number] Requested By: VALENCIA MCKEON Order Number: [id number] Reading MD: Jhony Polanco Measurements Intervals [place] Rate: 131 P: -31 OK: 162 QRS: 39 QRSD: 78 T: 190 QT: 312 QTc: 462 Interpretive Statements Sinus tachycardia vs aflutter 2:1 repeat ekg Abnormal T, consider ischemia, diffuse leads No previous ECG available for comparison Electronically Signed On 07-30-2022 9:30:53 EDT by Jhony Polanco
[2022-07-30] MEDS ORDERED: ALBUTEROL 8.5 GM MDI INHALATION IH ONE (09:32)
[2022-07-30] MEDS ORDERED: SODIUM POLYSTYRENE 15 GM/60 ML ORAL LIQD PO SCH (10:00)
[2022-07-30] MEDS ORDERED: ALBUTEROL 2.5 MG/3 ML NEBU IH SCH (10:00)
[2022-07-30] MEDS ORDERED: SODIUM BICARBONATE 150 MEQ in DEXTROSE 5% IN WATER 1,000 ML IV SCH (10:30)
--- NOTE | 2022-07-30 14:31 | Ultrasound Report ---
ULTRASOUND RENAL INDICATION: Acute renal failure.. COMPARISON: No relevant prior imaging study available. FINDINGS: RIGHT KIDNEY: Size: 8.5 cm. Echogenicity: Normal. Cortical thickness: Normal. Stones: None. Hydronephrosis: None. Cyst or mass: None. LEFT KIDNEY: Size: 10.4 cm. Echogenicity: Normal. Cortical thickness: Normal. Stones: None. Hydronephrosis: None. Cyst or mass: None. Urinary Bladder: Collapsed around a Ojeda catheter.. Free Fluid: None. Additional Findings: Right pleural effusion.. IMPRESSION 1. No acute sonographic abnormality of the kidneys. Signer Name: Edy Calixto MD Signed: 07/30/2022 2:27 PM Workstation Name: [employer]
[2022-07-30] MEDS ORDERED: DEXTROSE 50% IN WATER (25GM) 50 ML SYRINGE IV PRN (15:02)
--- NOTE | 2022-07-30 16:22 | Consultation ---
History of Present Illness Consult date: 07/30/22 Requesting physician: STANLEY OSBORN Consult reason: congestive heart failure History of present illness: Patient is a 76-year-old male with a past medical history of CAD, hypertension, Parkinson's disease, history of TIA, history of PE(previously anticoagulated on Eliquis), diabetes, hyperlipidemia, dementia, ASD who was brought to the ED for shortness of breath and diaphoresis x1 day. History is taken from chart and from patient's who is at bedside due to patient's mental status. Per patient has been sweaty, with fevers, then short of breath for at least a day. In the ED patient was found to hypoxic, septic, have a UTI, have GIBRAN, have lactic acidosis, have elevated BNP, and have elevated troponins. She reports that patient was recently discharged from [facility] earlier this month due to blood clots in the bladder. She states while at [facility] the patient was recommended to see integration solution architect as an outpatient. She could not clarify why. Patient used to follow integration solution architect at [place] but has not been seen in the office since January 2021. Patient is previously unknown to our practice. Cardiology is consulted for CHF Past History Past Medical History: other (See HPI) Past Surgical History: Other (BKA) Social history: , lives with family Family history: hypertension Medications and Allergies Allergies Allergy/AdvReac Type Severity Reaction Status Date / Time Penicillins AdvReac Unknown Verified 07/29/22 10:26 Home Medications Medication Instructions Recorded Confirmed Last Taken Type Apixaban [Eliquis] 2.5 mg PO BID 07/30/22 07/30/22 Unknown History Ascorbic Acid [Vitamin C with Chana 500 mg PO QDAY 07/30/22 07/30/22 Unknown History Hips] Aspirin [Vazalore] 81 mg PO DAILY 07/30/22 07/30/22 Unknown History AtorvaSTATin [Lipitor] 20 mg PO DAILY 07/30/22 07/30/22 Unknown History Cholecalciferol Vit D3 [Vitamin D3 1,000 unit PO QDAY 07/30/22 07/30/22 Unknown History 1,000 UNIT TAB] Cyanocobalamin (Vitamin B-12) 3,000 mcg PO QDAY 07/30/22 07/30/22 Unknown History [Vitamin B-12] Dapagliflozin Propanediol [Farxiga] 1 tab PO DAILY 07/30/22 07/30/22 Unknown History Finasteride [Proscar] 5 mg PO QDAY 07/30/22 07/30/22 Unknown History Fludrocortisone [Florinef Tab] 0.1 mg PO QDAY 07/30/22 07/30/22 Unknown History Furosemide [Lasix] 20 mg PO 3XW 07/30/22 07/30/22 Unknown History Furosemide [Lasix] 20 mg PO UNK 07/30/22 07/30/22 1 Day Ago History ~07/29/22 Insulin Detemir [Levemir Flextouch] 15 unit SQ DAILY 07/30/22 07/30/22 Unknown History Insulin Glargine [Lantus VIAL] 10 units SQ QHS 07/30/22 07/30/22 Unknown History Insulin Lispro [Humalog] 1 unit SQ ACHS 07/30/22 07/30/22 Unknown History Latanoprost 0.005% 1 drop OU QHS 07/30/22 07/30/22 Unknown History Lisinopril [Zestril] 5 mg PO BID 07/30/22 07/30/22 Unknown History Magnesium 400 mg PO QDAY 07/30/22 07/30/22 Unknown History Midodrine [Proamatine] 10 mg PO Q8HR 07/30/22 07/30/22 Unknown History Nystatin Cream [Mycostatin Cream] 1 applic TP BID 07/30/22 07/30/22 Unknown History Potassium Chloride [K-Dur] 20 meq PO BID 07/30/22 07/30/22 Unknown History Sitagliptin Phosphate [Januvia] 100 mg PO DAILY 07/30/22 07/30/22 Unknown History carvediloL [Coreg] 3.125 mg PO BID 07/30/22 07/30/22 Unknown History oxyCODONE /ACETAMINOPHEN [Percocet 1 tab PO Q4HR PRN 07/30/22 07/30/22 Unknown History 5/325] Active Meds: Active Medications Albuterol (Albuterol 2.5 Mg/3 Ml Nebu) 2.5 mg IH Q3HRT PRN PRN Reason: Shortness Of Breath Dextrose (Dextrose 50% In Water (25gm) 50 Ml Syringe) 50 ml IV Q30MIN PRN; Protocol PRN Reason: Hypoglycemia Furosemide (Furosemide 20 Mg/2 Ml Inj) 20 mg IV BID@0600,1800 [facility] Last Admin: 07/30/22 06:06 Dose: 20 mg Hydromorphone HCl (Hydromorphone 0.5 Mg/0.5 Ml Inj) 0.5 mg IV Q13H PRN PRN Reason: Pain , Severe (7-10) Hydromorphone HCl (Hydromorphone 0.5 Mg/0.5 Ml Inj) 0.25 mg IV Q4H PRN PRN Reason: Pain, Moderate (4-6) Levofloxacin/Dextrose (Levaquin 750mg/150ml) 750 mg in 150 mls @ 100 mls/hr IV Q48HR [facility]; Protocol Sodium Bicarbonate 150 meq/ (Dextrose) 1,150 mls @ 125 mls/hr IV DIRECT YUSRA Stop: 07/30/22 19:41 Last Admin: 07/30/22 12:00 Dose: 125 mls/hr Insulin Glargine (Insulin Glargine 100 Units/Ml) 10 units SUB-Q QHS [facility] Insulin Human Lispro (Insulin Lispro 100 Unit/Ml) 0 unit SUB-Q ACHS [facility]; Protocol Miscellaneous Medication (Apixaban) 2.5 mg PO BID [facility] Miscellaneous Medication (Aspirin [Vazalore]) 81 mg PO DAILY [facility] Oxycodone/Acetaminophen (Oxycodone /Acetaminophen 5-325mg Tab) 1 tab PO Q6H PRN PRN Reason: Pain, Moderate (4-6) Sodium Chloride (Sodium Chloride 0.9% 10 Ml Flush Syringe) 10 ml IV BID [facility] Last Admin: 07/30/22 12:00 Dose: 10 ml Sodium Chloride (Sodium Chloride 0.9% 10 Ml Flush Syringe) 10 ml IV PRN PRN PRN Reason: LINE FLUSH Review of Systems ROS unobtainable: due to mental status Physical Examination Vital Signs Temp Pulse Resp BP Pulse Ox 97.9 F 111 H 14 114/76 100 07/29/22 10:23 07/29/22 10:23 07/29/22 10:23 07/29/22 10:23 07/29/22 10:23 General appearance: no acute distress, other (AMS) HEENT: Positive: PERRL Neck: Positive: trachea midline Cardiac: Positive: Reg Rate and Rhythm Lungs: Positive: Normal Breath Sounds Neuro: Positive: Grossly Intact Abdomen: Positive: Soft Skin: Negative: Rash, Suspicious Lesions, Ulceration Extremities: Absent: edema Results 07/30/22 03:59 07/30/22 03:59 Cardiac Enzymes 07/30/22 Range/Units 03:59 AST 176 H (5-40) units/L Lipids 07/29/22 Range/Units 14:57 Triglycerides 59 (2-149) mg/dL Cholesterol 108 (50-199) mg/dL HDL Cholesterol 35 L (40-59) mg/dL Cholesterol/HDL Ratio 3.08 % CBC 07/30/22 Range/Units 03:59 WBC 10.9 (4.5-11.0) K/mm3 RBC 3.33 L (3.65-5.03) M/mm3 Hgb 9.4 L (11.8-15.2) gm/dl Hct 28.4 L (35.5-45.6) % Plt Count 280 (140-440) K/mm3 Lymph # (Auto) 1.2 (1.2-5.4) K/mm3 Emanuel # (Auto) 1.0 H (0.0-0.8) K/mm3 Eos # (Auto) 0.0 (0.0-0.4) K/mm3 Baso # (Auto) 0.0 (0.0-0.1) K/mm3 Comprehensive Metabolic Panel 07/30/22 Range/Units 03:59 Sodium 137 (137-145) mmol/L Potassium 5.5 H (3.6-5.0) mmol/L Chloride 101.6 (98-107) mmol/L Carbon Dioxide 15 L (22-30) mmol/L BUN 80 H (9-20) mg/dL Creatinine 2.5 H (0.8-1.3) mg/dL Glucose 159 H (75-100) mg/dL Calcium 9.0 (8.4-10.2) mg/dL AST 176 H (5-40) units/L ALT 151 H (7-56) units/L Alkaline Phosphatase 265 H (35-129) units/L Total Protein 6.9 (6.3-8.2) g/dL Albumin 3.6 L (3.9-5) g/dL - Imaging and Cardiology Echo: pending EKG interpretations - Telemetry EKG Rhythm: Sinus Tachycardia - EKG Sinus rhythms and dysrhythmias: sinus tachycardia Repolarization changes or abnormalities: ST or T wave suggestive of ischemia Assessment and Plan Patient is a 76-year-old male with a past medical history of CAD, hypertension, Parkinson's disease, history of TIA, history of PE(previously anticoagulated on Eliquis stopped due to hematuria), diabetes, hyperlipidemia, dementia, ASD who was brought to the ED for shortness of breath and diaphoresis x1 day Sepsis Acute respiratory failure NSTEMI suspect type II Acute CHF UTI Lactic acidosis GIBRAN CAD Hypertension Parkinson's disease History of TIA History of PE-previously anticoagulated on Eliquis stopped due to hematuria Plan: EKG shows sinus tach rate 131 abnormal T waves. No acute ischemic changes Troponin noted to be elevated however EKG shows no acute ischemic changes. Suspect possible NSTEMI type II in setting of GIBRAN, lactic acidosis, sepsis Due to patient mental status and current comorbidities recommend conservative cardiac management BNP noted to be elevated and CXR shows possible mild CHF will continue gentle diuresis with Lasix 20 mg IV twice daily if okay with nephrology Strict I&O's, daily weights, repeat BMP in the a.m. Patient has soft BPs will hold GDMT at this time Echo pending Patient seen in conjunction with Dr. Polanco who agrees with plan of care - Patient Problems (1) GIBRAN (acute kidney injury) Current Visit: Yes Status: Acute (2) Acute hypoxemic respiratory failure Current Visit: Yes Status: Acute (3) UTI (urinary tract infection) Current Visit: Yes Status: Acute Qualifiers: Encounter type: initial encounter (4) Metabolic acidosis Current Visit: Yes Status: Acute (5) Vascular dementia Current Visit: Yes Status: Acute (6) Cerebral atherosclerosis Current Visit: Yes Status: Acute (7) Acute kidney injury (GIBRAN) with acute tubular necrosis (ATN) Current Visit: Yes Status: Acute
[2022-07-30] MEDS: INSULIN LISPRO 100 UNIT/ML SUB-Q SCH ×2 (17:37→23:16)
[2022-07-30 19:53] LABS: Hematocrit 29.4 % (35.5-45.6); Hemoglobin 9.7 gm/dl (11.8-15.2); Mean Corpuscular HGB Conc 33 % (32-34); Mean Corpuscular Volume 86 fl (84-94); Platelet Count 278 K/mm3 (140-440); Red Blood Count 3.41 M/mm3 (3.65-5.03)
[2022-07-30 20:10] LABS: INR 1.87 (0.87-1.13); Partial Thromboplastin Time 34.6 Sec. (24.2-36.6)
[2022-07-30] MEDS ORDERED: NON-FORMULARY EACH (Apixaban 2.5 MG Tablet) PO SCH (22:00)
[2022-07-30] MEDS ORDERED: INSULIN GLARGINE 100 UNITS/ML SUB-Q SCH (22:00)
[2022-07-30] MEDS ORDERED: APIXABAN 2.5 MG TAB PO SCH (22:00)
[2022-07-30] MEDS: APIXABAN 2.5 MG TAB PO SCH (23:16)
[2022-07-31 00:58] LABS: Creatinine,Urine 75.6 mg/dL (0.1-20.0)
[2022-07-31 06:24] LABS: Basophils % (Auto) 0.1 % (0.0-1.8); Eosinophils % (Auto) 0.3 % (0.0-4.3); Hematocrit 31.6 % (35.5-45.6); Lymphocytes # (Auto) 1.6 K/mm3 (1.2-5.4); Lymphocytes % (Auto) 15.7 % (13.4-35.0); Mean Corpuscular HGB Conc 32 % (32-34); Mean Corpuscular Volume 88 fl (84-94); Monocytes # (Auto) 1.3 K/mm3 (0.0-0.8); Monocytes % (Auto) 12.5 % (0.0-7.3); Platelet Count 293 K/mm3 (140-440); Red Blood Count 3.61 M/mm3 (3.65-5.03); Red Cell Distribution Width 16.8 % (13.2-15.2)
[2022-07-31] MEDS: FUROSEMIDE 20 MG/2 ML INJ IV SCH (06:36)
[2022-07-31 06:47] LABS: Albumin 3.6 g/dL (3.9-5); Calcium 9.1 mg/dL (8.4-10.2)
--- NOTE | 2022-07-31 08:45 | Progress Note ---
Assessment and Plan Assessment and plan: History of present illness: 76 YO Male with Vascular Dementia, Cerebral Atherosclerosis presents ED for evaluation. Patient reports "I do not feel good and I am short of breath. Patient provides minimal history and is assisted by his and providing history who was at bedside during exam and interview. Patient states that he has experienced generalized weakness, subjective fever, and shortness of breath over the past few days with persistent symptoms over the same timeframe. Patient acknowledges decreased exercise tolerance, dyspnea on exertion, tension at rest, orthopnea, paroxysmal nocturnal dyspnea, subjective fever, subjective weight gain, as well as lower extremity edema. EMS was notified and upon arrival the patient was found to be in distress with a pulse oximetry of 88% on room air. Patient was placed on submental oxygen and transported to [facility] for further care and evaluation of the aforementioned symptoms. The patient was seen and evaluated in the emergency department. All lab and imaging studies reviewed. Patient found to have a pulse oximetry of 87% on room air which is consistent with acute hypoxemic respiratory failure. Patient also found to have urinary tract infection complicated by sepsis, metabolic acidosis, toxic metabolic encephalopathy, GIBRAN with ATN, as well as symptoms and lab findings consistent with CHF decompensation. Patient admitted to IM and initiated on sepsis protocol as well as CHF protocol. Patient denies chills, chest pain, palpitation, productive cough, skin rash, recent contact, known exposure to C OVID-19. No prior admission for review. No medication listed at time of admission for reconciliation. Advanced care planning conducted in ED. Hospital course: 07/31: Hypotensive this AM but asymptomatic. Appears nearly euvolemic. Renal function slightly worse 2.6. Lasix on hold. Potassium improved to 4.3. GDMT on hold due to hypotension. Cardiology and nephrology recommendations noted. Assessment and Plan: #Sepsis POA #Urinary tract infection - LA 4.2, tachycardic, source urinary - UA wbc: 182 - AB.36/23/107/13 on 21%fio2 - levaquin IV for empiric tx. allergy to PCN noteds - IVF - Bcx, UCx #Acute hypoxic respiratory failure (resolved) #Acute on Chronic Systolic Congestive heart Failure - currently on 2l/min nc. - cxr: mild chf - resume home lasix - echo LVEF 25-30%, global hypokinesis - GDMT on hold currenlty due to hypotension - may give albumin + lasix trial tomorrow if renal function can tolerate. #History of Pulmonary embolism #History of Hematuria - ok to resume Eliquis per d/w cardiology - restart home Eliquis 2.5 mg po bid. - has history of hematuria was told to stop asa and keep eliquis per family info provided. - holding asa unless cardiology would like patient to remain on this. #Acute kidney injury with acute tubular necrosis #Metabolic acidosis #Cardiorenal syndrome #hyperkalemia - IVF rehydration - Cr: 2.4 on admisison, now 2.6 - sodium bicarb gtt x 1 bag ordered - nephrology consultation - trend serial bmp. - renal US: negative for acute findings - cr 5.5, tx with kionex, insulin -may give trial of albumin+lasix tomorrow #Transaminitis - monitor, AST/ALT in 200's. -worsened today, hold statin at this time - avoid hepatotoxins. #Vascular dementia #Cerebral atherosclerosis #Type 2 Diabetes with hyperglycemia - takes farxiga and januvia per - SSI and lantus while hospitalized #Advance care planning Disease education conducted, care plan discussed, diagnoses discussed, prognosis discussed, patient is full code, patient acknowledges understanding and agree with care plan, +30 minutes. dispo: Discharge home once medically stable. History Interval history: More alert this AM. No acute complaints .Son at bedside. Discussed ongoing diagn osis and treatment plan. Hospitalist Physical - Physical exam Narrative exam: Physical Exam: VITAL SIGNS: Reviewed. GENERAL: The patient appears normally developed, Vital signs as documented. HEAD: No signs of head trauma. EYES: Pupils are equal. Extraocular motions intact. EARS: Hearing grossly intact. MOUTH: Oropharynx is normal. NECK: No adenopathy, no JVD. CHEST: Chest with clear breath sounds bilaterally. No wheezes, rales, or rhonchi. CARDIAC: Regular rate and rhythm. S1 and S2, without murmurs, gallops, or rubs. VASCULAR: No Edema. Peripheral pulses normal and equal in all extremities. ABDOMEN: Soft, non tender and non distended. No rebound or guarding, and no masses palpated. Bowel Sounds normal. MUSCULOSKELETAL: Good range of motion of all major joints. Extremities without clubbing, cyanosis or edema. NEUROLOGIC EXAM: Alert and oriented x 4. no focal sensory or strength deficits. PSYCHIATRIC: Mood normal. SKIN: detail exam as documented in skin assessment - Constitutional Vitals: Temp Pulse Resp BP Pulse Ox 97.4 F L 108 H 15 92/61 85 07/31/22 04:13 07/31/22 04:13 07/31/22 04:13 07/31/22 04:13 07/31/22 04:13 General appearance: Present: no acute distress, other (AMS) HEART Score - HEART Score Troponin: Troponin T 0.484 ng/mL (0.00-0.029) H* 07/29/22 14:57 Results - Labs CBC & Chem 7: 07/31/22 05:35 07/31/22 05:35 Labs: Laboratory Last Values WBC 10.5 K/mm3 (4.5-11.0) 07/31/22 05:35 RBC 3.61 M/mm3 (3.65-5.03) L 07/31/22 05:35 Hgb 10.0 gm/dl (11.8-15.2) L 07/31/22 05:35 Hct 31.6 % (35.5-45.6) L 07/31/22 05:35 MCV 88 fl (84-94) 07/31/22 05:35 MCH 28 pg (28-32) 07/31/22 05:35 MCHC 32 % (32-34) 07/31/22 05:35 RDW 16.8 % (13.2-15.2) H 07/31/22 05:35 Plt Count 293 K/mm3 (140-440) 07/31/22 05:35 Lymph % (Auto) 15.7 % (13.4-35.0) 07/31/22 05:35 [place] % (Auto) 12.5 % (0.0-7.3) H 07/31/22 05:35 Eos % (Auto) 0.3 % (0.0-4.3) 07/31/22 05:35 Baso % (Auto) 0.1 % (0.0-1.8) 07/31/22 05:35 Lymph # (Auto) 1.6 K/mm3 (1.2-5.4) 07/31/22 05:35 [place] # (Auto) 1.3 K/mm3 (0.0-0.8) H 07/31/22 05:35 Eos # (Auto) 0.0 K/mm3 (0.0-0.4) 07/31/22 05:35 Baso # (Auto) 0.0 K/mm3 (0.0-0.1) 07/31/22 05:35 Seg Neutrophils % 71.4 % (40.0-70.0) H 07/31/22 05:35 Seg Neutrophils # 7.5 K/mm3 (1.8-7.7) 07/31/22 05:35 PT 23.9 Sec. (12.2-14.9) H 07/30/22 19:24 INR 1.87 (0.87-1.13) H 07/30/22 19:24 APTT 34.6 Sec. (24.2-36.6) 07/30/22 19:24 ABG pH 7.361 pH Units (7.350-7.450) 07/29/22 23:55 ABG pCO2 23.7 mm Hg 07/29/22 23:55 ABG pO2 107.0 mm Hg (80.0-90.0) H 07/29/22 23:55 ABG HCO3 13.1 mmol/L (20.0-26.0) L 07/29/22 23:55 ABG O2 Saturation 97.9 % (95.0-99.0) 07/29/22 23:55 ABG O2 Content 12.0 (0.0-44) 07/29/22 23:55 ABG Base Excess -11.0 mmol/L (-2.0-3.0) L 07/29/22 23:55 ABG Hemoglobin 8.8 gm/dl (14.0-18.0) L 07/29/22 23:55 ABG Carboxyhemoglobin 2.0 % (0.0-5.0) 07/29/22 23:55 ABG Methemoglobin 0.4 % (0.0-1.5) 07/29/22 23:55 Oxyhemoglobin 95.6 % (95.0-99.0) 07/29/22 23:55 FiO2 21 % 07/29/22 23:55 Sodium 139 mmol/L (137-145) 07/31/22 05:35 Potassium 4.3 mmol/L (3.6-5.0) D 07/31/22 05:35 Chloride 98.2 mmol/L (98-107) 07/31/22 05:35 Carbon Dioxide 20 mmol/L (22-30) L 07/31/22 05:35 Anion Gap 25 mmol/L 07/31/22 05:35 BUN 89 mg/dL (9-20) H 07/31/22 05:35 Creatinine 2.6 mg/dL (0.8-1.3) H 07/31/22 05:35 Estimated GFR 29 ml/min 07/31/22 05:35 BUN/Creatinine Ratio 34 % 07/31/22 05:35 Glucose 169 mg/dL (75-100) H 07/31/22 05:35 POC Glucose 376 mg/dL (70-105) H 07/30/22 23:12 Lactic Acid 3.50 mmol/L (0.7-2.0) H* 07/30/22 11:36 Calcium 9.1 mg/dL (8.4-10.2) 07/31/22 05:35 Magnesium 2.90 mg/dL (1.7-2.3) H 07/29/22 14:57 Total Bilirubin 1.50 mg/dL (0.1-1.2) H 07/31/22 05:35 AST 259 units/L (5-40) H 07/31/22 05:35 ALT 257 units/L (7-56) H 07/31/22 05:35 Alkaline Phosphatase 610 units/L (35-129) H 07/31/22 05:35 Troponin T 0.484 ng/mL (0.00-0.029) H* 07/29/22 14:57 NT-Pro-B Natriuret Pep 62001 pg/mL (0-900) H 07/29/22 14:57 Total Protein 6.9 g/dL (6.3-8.2) 07/31/22 05:35 Albumin 3.6 g/dL (3.9-5) L 07/31/22 05:35 Albumin/Globulin Ratio 1.1 % 07/31/22 05:35 Triglycerides 59 mg/dL (2-149) 07/29/22 14:57 Cholesterol 108 mg/dL (50-199) 07/29/22 14:57 LDL Cholesterol Direct 68 mg/dL (50-130) 07/29/22 14:57 HDL Cholesterol 35 mg/dL (40-59) L 07/29/22 14:57 Cholesterol/HDL Ratio 3.08 % 07/29/22 14:57 Urine Color Yellow (Yellow) 07/29/22 Unknown Urine Turbidity Turbid (Clear) 07/29/22 Unknown Specific [place] (Man) 1.020 (1.003-1.030) 07/29/22 Unknown Ur Protein (Man) 2+ mg/dL (Negative) 07/29/22 Unknown Ur Ketones (Man) 5mg/dl (Negative) 07/29/22 Unknown Ur Nitrite (Man) Negative (Negative) 07/29/22 Unknown Urine Bilirubin (Man) Negative (Negative) 07/29/22 Unknown Urine Ictotest Not Reportable 07/29/22 Unknown Leukocyte Esterase (Man) Moderate (Negative) 07/29/22 Unknown Urine WBC (Auto) > 182.0 /HPF (0.0-6.0) H 07/29/22 Unknown Urine RBC (Auto) > 182.0 /HPF (0.0-6.0) 07/29/22 Unknown Urine RBC (Manual) 3+ (Negative) 07/29/22 Unknown Urine WBC Clumps 3+ /HPF 07/29/22 Unknown Ur Yeast w Hyphae 3+ /HPF 07/29/22 Unknown Urine Yeast (Budding) 2+ /HPF 07/29/22 Unknown Urine Creatinine 75.6 mg/dL (0.1-20.0) H 07/30/22 11:12 Urine Sodium 10 mmol/L 07/30/22 11:12 Blood Type O POSITIVE 07/29/22 18:02 Antibody Screen Negative 07/29/22 18:02 Microbiology: Microbiology 07/29/22 14:57 Peripheral/Venous Blood Culture - Preliminary NO GROWTH AFTER 24 HOURS 07/29/22 14:57 Peripheral/Venous Blood Culture - Preliminary NO GROWTH AFTER 24 HOURS [place]/IV: Voiding Method Condom Catheter Active Medications - Current Medications Current Medications: Generic Name Dose Route Start Last Admin Trade Name Freq PRN Reason Stop Dose Admin Albuterol 2.5 mg 07/29/22 17:23 Albuterol 2.5 Mg/3 Ml Nebu IH Q3HRT PRN Shortness Of Breath Apixaban 2.5 mg 07/30/22 22:00 07/30/22 23:16 Apixaban 2.5 Mg Tab PO 2.5 mg Q12HR YUSRA Administration Protocol Dextrose 50 ml 07/30/22 15:02 Dextrose 50% In Water (25gm) 50 Ml Syringe IV Q30MIN PRN Hypoglycemia Protocol Furosemide 20 mg 07/29/22 18:00 07/31/22 06:36 Furosemide 20 Mg/2 Ml Inj IV 20 mg BID@0600,1800 YUSRA Administration Hydromorphone HCl 0.5 mg 07/29/22 17:23 Hydromorphone 0.5 Mg/0.5 Ml Inj IV Q13H PRN Pain , Severe (7-10) Hydromorphone HCl 0.25 mg 07/29/22 17:27 Hydromorphone 0.5 Mg/0.5 Ml Inj IV Q4H PRN Pain, Moderate (4-6) Levofloxacin/Dextrose 750 mg in 150 mls @ 100 mls/hr 07/31/22 10:00 Levaquin 750mg/150ml IV Q48HR [facility] Protocol Insulin Glargine 20 units 07/31/22 08:41 Insulin Glargine 100 Units/Ml SUB-Q QHS YUSRA Insulin Human Lispro 0 unit 07/30/22 16:30 07/30/22 23:16 Insulin Lispro 100 Unit/Ml SUB-Q 8 unit ACHS [facility] Administration Protocol Miscellaneous Medication 81 mg 07/31/22 10:00 Aspirin [Vazalore] PO DAILY [facility] Oxycodone/Acetaminophen 1 tab 07/29/22 17:23 Oxycodone /Acetaminophen 5-325mg Tab PO Q6H PRN Pain, Moderate (4-6) Sodium Chloride 10 ml 07/29/22 22:00 07/30/22 23:18 Sodium Chloride 0.9% 10 Ml Flush Syringe IV 10 ml BID YUSRA Administration Sodium Chloride 10 ml 07/29/22 17:23 Sodium Chloride 0.9% 10 Ml Flush Syringe IV PRN PRN LINE FLUSH Nutrition/Malnutrition Assess - Dietary Evaluation Nutrition/Malnutrition Findings: Nutrition Notes Start: 07/30/22 09 :53 Freq: Status: Active Protocol: Document 07/30/22 09:53 ULISES (Rec: 07/30/22 10:15 ULISES [email or web address]) Nutrition Notes Need for Assessment generated from: MD Order Initial or Follow up Assessment Current Diagnosis Acute Kidney Injury,Sepsis, Respiratory Failure Other Pertinent Diagnosis UTI, Metabolic Acidosis, Metabolic Encephalopathy, CHF, Cardiorenal Syndr.. Current Diet D Suppl (from L 07/30). Labs/Tests 07/30: K 5.5, CO2 19, BUN 80, Crea 2.5, Glu 159. Pertinent Medications 07/30: Nutritionally unremarkable. 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 Weight Status Appropriate Subjective/Other Information RD consult for poor oral intake and dietary supplementation assessment. Pt started PO intake of dietary supplements per MD, no further information available at the time, will assess at F /U. Pt is on Nasal Cannula, O2 saturation @ 100%, according to Physical Assessment History notes. Pt has missing teeth, according to Physical Assessment History notes. Pt presents R-LE Pitting Edema 3+, according to Physical Assessment History notes. Percent of energy/protein needs met: Dietary Supplements will compensate for possible poor or insufficient PO intake of meals with 850 Kcal and 38 g of protein. Burn Absent Trauma Absent GI Symptoms None Food Allergy No Skin Integrity/Comment R-LE Edematouse. Minimum of two criteria No Fluid Accumulation Mild (non-severe) Protein-Calorie Malnutrition N\\A #1 Nutrition Diagnosis Predicted suboptimal energy intake Etiology Ongoing and concomitant chronic metabolic conditions. As Evidenced by Signs and Symptoms Stated poor appetite CERTIFIED ALCOHOL AND DRUG COUNSELOR, and possible poor or insufficient PO intake of meals. Is patient on ventilator? No Is Patient Ambulatory and/or Out of Bed No REE-([facility]-confined to bed) 1968.072 Kcal/Kg value to use for calculation 26 Approximate Energy Requirements Using 2228 kcal/Kg Calculation Used for Recommendations Kcal/kg Additional Notes Protein: 0.8-1.2 g/Kg ABW; 69- 103 g/day. Fluids: 1 ml/Kcal, or as per MD. Nutrition Intervention Change Diet Order: When pertinent, advance to Cardiac -Renal- Diet, continue as tolerated. Add Supplement/Snack (indicate name/kcal Start 8 fl oz Nepro w/ /protein ) CARBSTEADY: BID. Provides kCal: 850 Provides Protein (gm) 38 Goal #1 Compensate, through dietary supplementation, for possible poor or insufficient PO intake of meals during LOS. Follow-Up By: 08/01/22 Additional Comments Start monitoring dietary supplements intake and tolerance, Diet advancement, and BM.
[2022-07-31] MEDS: APIXABAN 2.5 MG TAB PO SCH ×2 (09:05→21:40)
[2022-07-31] MEDS: INSULIN LISPRO 100 UNIT/ML SUB-Q SCH ×4 (09:06→22:47)
[2022-07-31] MEDS ORDERED: NON-FORMULARY EACH (Aspirin [Vazalore] 81 MG Capsule) PO SCH (10:00)
--- NOTE | 2022-07-31 10:15 | Progress Note ---
Assessment and Plan 1. Acute kidney injury: Vasomotor GIBRAN in the setting of hypotension/CHF/sepsis. Cardiorenal syndrome. ATN. Baseline renal function unknown. Renal US negative for hydro/stone. Monitor renal function. Renal prognosis is guarded. Avoid nephrotoxic agents. Meds dosage based on GFR. 2. FEN: Hyperkalemia, improved, monitor. Anion-gap Metabolic acidosis, improving, monitor. Diuretics as needed. Replete lytes as needed. Monitor lytes and volume status. 3. Sepsis, POA: Likely 2/2 Urinary tract infection. On IV Levaquin. Follow cultures. 4. Acute hypoxic respiratory failure, POA: 2/2 Congestive heart Failure. Supplemental O2 as needed. Diuretics. Followed by Cards. 5. Elevated Transaminases, POA: Trend. 6. Type 2 Diabetes with hyperglycemia, POA: SSI and lantus. 7. Normocytic anemia, POA: Trend. 8. Dementia. Subjective: Patient was seen and examined at the bedside. Son at the bedside. Examination: General appearance: well-developed, appears stated age, not in distress HEENT: no icterus Neck: trachea midline Respiratory: decreased breath sounds Heart: S1S2, no murmur Abdomen: soft, bowel sounds heard, NT, no palpable mass Integumentary: no obvious rash Neurologic: conversing, able to move extremities, confused Ext: 1+ LE and dependent edema noted, L BKA Subjective Date of service: 07/31/22 Objective - Vital Signs Vital signs: Vital Signs - 12hr 07/30/22 07/30/22 07/30/22 22:30 23:00 23:25 Temperature Pulse Rate 126 H 105 H 126 H Pulse Rate [ From Monitor] Respiratory 37 H 49 H Rate Blood Pressure 100/69 84/58 O2 Sat by Pulse 90 Oximetry 07/30/22 07/31/22 07/31/22 23:30 04:13 08:04 Temperature 97.4 F L 98.3 F Pulse Rate 105 H 108 H 101 H Pulse Rate [ 105 H From Monitor] Respiratory 40 H 15 Rate Blood Pressure 89/65 92/61 97/64 O2 Sat by Pulse 97 85 95 Oximetry - Lab 07/31/22 05:35 07/31/22 05:35 Most recent lab results ABG pH 7.361 pH Units (7.350-7.450) 07/29/22 23:55 ABG pCO2 23.7 mm Hg 07/29/22 23:55 ABG pO2 107.0 mm Hg (80.0-90.0) H 07/29/22 23:55 ABG HCO3 13.1 mmol/L (20.0-26.0) L 07/29/22 23:55 ABG O2 Saturation 97.9 % (95.0-99.0) 07/29/22 23:55 Calcium 9.1 mg/dL (8.4-10.2) 07/31/22 05:35 Magnesium 2.90 mg/dL (1.7-2.3) H 07/29/22 14:57 Urine Creatinine 75.6 mg/dL (0.1-20.0) H 07/30/22 11:12 Urine Sodium 10 mmol/L 07/30/22 11:12 Medications & Allergies - Medications Allergies/Adverse Reactions: Allergies Penicillins Adverse Reaction (Verified 07/31/22 16:31) Unknown "childhood allergy" Home Medications: Home Medications Medication Instructions Recorded Confirmed Last Taken Type Ascorbic Acid [Vitamin C with Chana 500 mg PO QDAY 07/30/22 07/31/22 Unknown History Hips] AtorvaSTATin [Lipitor] 20 mg PO DAILY 07/30/22 07/31/22 Unknown History Cholecalciferol Vit D3 [Vitamin D3 1,000 unit PO QDAY 07/30/22 07/31/22 Unknown History 1,000 UNIT TAB] Cyanocobalamin (Vitamin B-12) 3,000 mcg PO QDAY 07/30/22 07/31/22 Unknown History [Vitamin B-12] Dapagliflozin Propanediol [Farxiga] 1 tab PO DAILY 07/30/22 07/31/22 Unknown History Finasteride [Proscar] 5 mg PO QDAY 07/30/22 07/31/22 Unknown History Fludrocortisone [Florinef Tab] 0.1 mg PO QDAY 07/30/22 07/31/22 Unknown History Furosemide [Lasix] 20 mg PO 3XW 07/30/22 07/31/22 Unknown History Insulin Detemir [Levemir Flextouch] 15 units SQ DAILY 07/30/22 07/31/22 Unknown History Insulin Glargine [Lantus VIAL] 10 units SQ QHS 07/30/22 07/31/22 Unknown History Insulin Lispro [Humalog] 1 - 18 unit SQ Q4H 07/30/22 07/31/22 Unknown History Latanoprost 0.005% 1 drop OU QPM 07/30/22 07/31/22 Unknown History Lisinopril [Zestril] 5 mg PO BID 07/30/22 07/31/22 Unknown History Magnesium 400 mg PO QDAY 07/30/22 07/31/22 Unknown History Midodrine [Proamatine] 10 mg PO Q8HR 07/30/22 07/31/22 Unknown History Nystatin Cream [Mycostatin Cream] 1 applic TP BID 07/30/22 07/31/22 Unknown History Potassium Chloride [K-Dur] 20 meq PO BID 07/30/22 07/31/22 Unknown History Sitagliptin Phosphate [Januvia] 100 mg PO DAILY 07/30/22 07/31/22 Unknown History carvediloL [Coreg] 3.125 mg PO BID 07/30/22 07/31/22 Unknown History oxyCODONE /ACETAMINOPHEN [Percocet 1 tab PO Q4HR PRN 07/30/22 07/31/22 Unknown History 5/325] Apixaban [Eliquis] 5 mg PO BID 07/31/22 07/31/22 Unknown History Aspirin [Adult Aspirin] 81 mg PO QDAY 07/31/22 07/31/22 Unknown History Active Medications: Generic Name Dose Route Start Last Admin Trade Name Freq PRN Reason Stop Dose Admin Albuterol 2.5 mg 07/29/22 17:23 Albuterol 2.5 Mg/3 Ml Nebu IH Q3HRT PRN Shortness Of Breath Apixaban 2.5 mg 07/30/22 22:00 07/31/22 09:05 Apixaban 2.5 Mg Tab PO 2.5 mg Q12HR YUSRA Administration Protocol Dextrose 50 ml 07/30/22 15:02 Dextrose 50% In Water (25gm) 50 Ml Syringe IV Q30MIN PRN Hypoglycemia Protocol Hydromorphone HCl 0.5 mg 07/29/22 17:23 Hydromorphone 0.5 Mg/0.5 Ml Inj IV Q13H PRN Pain , Severe (7-10) Hydromorphone HCl 0.25 mg 07/29/22 17:27 Hydromorphone 0.5 Mg/0.5 Ml Inj IV Q4H PRN Pain, Moderate (4-6) Levofloxacin/Dextrose 750 mg in 150 mls @ 100 mls/hr 07/31/22 10:00 07/31/22 09:05 Levaquin 750mg/150ml IV 100 mls/hr Q48HR YUSRA Administration Protocol Insulin Glargine 20 units 07/31/22 08:41 Insulin Glargine 100 Units/Ml SUB-Q QHS [facility] Insulin Human Lispro 0 unit 07/30/22 16:30 07/31/22 09:06 Insulin Lispro 100 Unit/Ml SUB-Q 2 unit ACHS [facility] Administration Protocol Miscellaneous Medication 81 mg 07/31/22 10:00 Aspirin [[place]] PO DAILY [facility] Oxycodone/Acetaminophen 1 tab 07/29/22 17:23 Oxycodone /Acetaminophen 5-325mg Tab PO Q6H PRN Pain, Moderate (4-6) Sodium Chloride 10 ml 07/29/22 22:00 07/30/22 23:18 Sodium Chloride 0.9% 10 Ml Flush Syringe IV 10 ml BID YUSRA Administration Sodium Chloride 10 ml 07/29/22 17:23 Sodium Chloride 0.9% 10 Ml Flush Syringe IV PRN PRN LINE FLUSH
--- NOTE | 2022-07-31 11:34 | Electrocardiograph Report ---
[facility] Test Date: 2022-07-30 Test Time: 10:47:08 Pat Name: STIVEN ARTEAGA Department: Room: A479 Gender: M Auto Electrician: AMANDA : 1945 Requested By: BRITT ALONSO Order Number: [id number] Reading MD: Rick Rees Measurements Intervals [place] Rate: 98 P: 6 AR: 185 QRS: -58 QRSD: 88 T: 119 QT: 376 QTc: 481 Interpretive Statements Sinus rhythm Inferior infarct, old Anterior infarct, old Nonspecific T abnormalities, lateral leads Compared to ECG 07/29/2022 12:11:56 Myocardial infarct finding now present Sinus tachycardia no longer present Possible ischemia no longer present T-wave abnormality still present Electronically Signed On 07-31-2022 11:34:09 EDT by Rick Rees
--- NOTE | 2022-07-31 11:41 | Progress Note ---
Assessment and Plan Patient is a 76-year-old male with a past medical history of CAD, hypertension, Parkinson's disease, history of TIA, history of PE(previously anticoagulated on Eliquis stopped due to hematuria), diabetes, hyperlipidemia, dementia, ASD who was brought to the ED for shortness of breath and diaphoresis x1 day Sepsis Acute respiratory failure NSTEMI suspect type II Acute CHF UTI Lactic acidosis GIBRAN CAD Hypertension Parkinson's disease History of TIA History of PE-previously anticoagulated on Eliquis stopped due to hematuria Echo 07/29/2022-EF 25 to 30%. Left ventricle is moderately dilated. Mild aortic regurgitation. Mild mitral regurgitation. No pericardial effusion. Moderate pleural effusion Plan: EKG shows sinus tach rate 131 abnormal T waves. No acute ischemic changes Troponin noted to be elevated however EKG shows no acute ischemic changes. Suspect possible NSTEMI type II in setting of GIBRAN, lactic acidosis, sepsis Echo results noted above Due to patient mental status and current comorbidities recommend conservative cardiac management Patient appears near euvolemic on exam agree with holding Lasix at this time Strict I&O's, daily weights, repeat BMP in the a.m. Patient has soft BPs will hold GDMT at this time Will hold stain therapy due to elevated LFTs Anticoagulation has been resumed Patient seen in conjunction with Dr. Rees who agrees with plan of care - Patient Problems (1) GIBRAN (acute kidney injury) Current Visit: Yes Status: Acute (2) Acute hypoxemic respiratory failure Current Visit: Yes Status: Acute (3) UTI (urinary tract infection) Current Visit: Yes Status: Acute Qualifiers: Encounter type: initial encounter (4) Metabolic acidosis Current Visit: Yes Status: Acute (5) Vascular dementia Current Visit: Yes Status: Acute (6) Cerebral atherosclerosis Current Visit: Yes Status: Acute (7) Acute kidney injury (GIBRAN) with acute tubular necrosis (ATN) Current Visit: Yes Status: Acute Subjective Date of service: 07/31/22 Principal diagnosis: Sepsis, NSTEMI type 2?, AMS, GIBRAN, Interval history: Patient resting in bed in no acute distress. Patient appears more alert this a.m. Patient's son at bedside Sinus tach 100s- 120son monitor Objective Vital Signs Temp Pulse Pulse Pulse Resp Resp BP 07/31/22 08:04 98.3 F 101 H 97/64 07/31/22 04:13 97.4 F L 108 H 15 92/61 07/30/22 23:30 105 H 105 H 40 H 89/65 07/30/22 23:25 126 H 07/30/22 23:00 105 H 49 H 84/58 07/30/22 22:30 126 H 37 H 100/69 07/30/22 22:00 105 H 28 H 91/67 07/30/22 21:30 124 H 28 H 92/62 07/30/22 21:00 103 H 24 99/61 07/30/22 20:30 103 H 24 99/67 07/30/22 20:00 97.8 F 125 H 49 H 79/58 07/30/22 19:30 127 H 38 H 95/67 07/30/22 19:00 119 H 24 102/70 07/30/22 18:30 127 H 34 H 101/70 07/30/22 18:15 123 H 23 102/66 07/30/22 18:00 106 H 31 H 103/71 07/30/22 17:45 103 H 36 H 100/62 07/30/22 17:30 125 H 35 H 100/68 07/30/22 17:15 123 H 19 102/69 07/30/22 17:00 105 H 38 H 99/67 07/30/22 16:45 123 H 39 H 99/66 07/30/22 16:30 126 H 37 H 101/68 07/30/22 16:15 123 H 42 H 84/53 07/30/22 16:00 98.7 F 100 H 110 H 28 H 98/65 07/30/22 15:45 124 H 36 H 97/68 07/30/22 15:30 123 H 27 H 114/60 07/30/22 15:15 125 H 36 H 103/67 07/30/22 15:00 102 H 40 H 96/72 07/30/22 14:45 100 H 22 99/66 07/30/22 14:30 123 H 36 H 95/63 07/30/22 14:15 127 H 25 H 101/70 07/30/22 14:00 103 H 37 H 95/67 07/30/22 13:45 67 41 H 97/63 07/30/22 13:30 100 H 29 H 94/63 07/30/22 13:15 101 H 24 97/66 07/30/22 13:00 100 H 24 102/63 07/30/22 12:45 125 H 37 H 97/70 07/30/22 12:30 96 H 24 99/64 07/30/22 12:15 100 H 25 H 90/62 07/30/22 12:12 99 H 16 07/30/22 12:00 98.6 F 101 H 118 H 40 H 94/69 07/30/22 11:45 100 H 39 H 97/68 Pulse Ox 07/31/22 08:04 95 07/31/22 04:13 85 07/30/22 23:30 97 07/30/22 23:25 07/30/22 23:00 90 07/30/22 22:30 07/30/22 22:00 97 07/30/22 21:30 96 07/30/22 21:00 93 07/30/22 20:30 96 07/30/22 20:00 100 07/30/22 19:30 93 07/30/22 19:00 100 07/30/22 18:30 100 07/30/22 18:15 98 07/30/22 18:00 98 07/30/22 17:45 99 07/30/22 17:30 93 07/30/22 17:15 100 07/30/22 17:00 99 07/30/22 16:45 98 07/30/22 16:30 97 07/30/22 16:15 97 07/30/22 16:00 99 07/30/22 15:45 07/30/22 15:30 07/30/22 15:15 07/30/22 15:00 93 07/30/22 14:45 99 07/30/22 14:30 99 07/30/22 14:15 100 07/30/22 14:00 100 07/30/22 13:45 94 07/30/22 13:30 100 07/30/22 13:15 99 07/30/22 13:00 100 07/30/22 12:45 98 07/30/22 12:30 100 07/30/22 12:15 96 07/30/22 12:12 07/30/22 12:00 100 07/30/22 11:45 100 - Physical Examination General: No Apparent Distress HEENT: Positive: PERRL Neck: Positive: trachea midline Cardiac: Positive: Regular Rhythm, Tachycardia Lungs: Positive: Decreased Breath Sounds Neuro: Positive: Grossly Intact Abdomen: Positive: Soft Skin: Negative: Rash, Suspicious Lesions, Ulceration Extremities: Absent: edema - Labs and Meds Cardiac Enzymes 07/31/22 Range/Units 05:35 AST 259 H (5-40) units/L Coagulation 07/30/22 Range/Units 19:24 PT 23.9 H (12.2-14.9) Sec. INR 1.87 H (0.87-1.13) APTT 34.6 (24.2-36.6) Sec. CBC 07/30/22 07/31/22 Range/Units 19:24 05:35 WBC 10.8 10.5 (4.5-11.0) K/mm3 RBC 3.41 L 3.61 L (3.65-5.03) M/mm3 Hgb 9.7 L 10.0 L (11.8-15.2) gm/dl Hct 29.4 L 31.6 L (35.5-45.6) % Plt Count 278 293 (140-440) K/mm3 Lymph # (Auto) 1.6 (1.2-5.4) K/mm3 [place] # (Auto) 1.3 H (0.0-0.8) K/mm3 Eos # (Auto) 0.0 (0.0-0.4) K/mm3 Baso # (Auto) 0.0 (0.0-0.1) K/mm3 Comprehensive Metabolic Panel 07/30/22 07/31/22 Range/Units 19:24 05:35 Sodium 139 (137-145) mmol/L Potassium 4.3 D (3.6-5.0) mmol/L Chloride 98.2 (98-107) mmol/L Carbon Dioxide 20 L (22-30) mmol/L BUN 89 H (9-20) mg/dL Creatinine 2.6 H 2.6 H (0.8-1.3) mg/dL Glucose 169 H (75-100) mg/dL Calcium 9.1 (8.4-10.2) mg/dL AST 259 H (5-40) units/L ALT 257 H (7-56) units/L Alkaline Phosphatase 610 H (35-129) units/L Total Protein 6.9 (6.3-8.2) g/dL Albumin 3.6 L (3.9-5) g/dL - Imaging and Cardiology Echo: report reviewed - Telemetry EKG Rhythm: Sinus Tachycardia - EKG Sinus rhythms and dysrhythmias: sinus tachycardia Repolarization changes or abnormalities: ST or T wave suggestive of ischemia
[2022-07-31] MEDS ORDERED: INSULIN GLARGINE 100 UNITS/ML SUB-Q SCH (22:00)
[2022-08-01] MEDS ORDERED: INSULIN REGULAR, HUMAN 100 UNITS/1 ML IV ONE (08:13)
--- NOTE | 2022-08-01 08:43 | Progress Note ---
Assessment and Plan 1. Acute kidney injury: Vasomotor GIBRAN in the setting of hypotension/CHF/sepsis. Cardiorenal syndrome. ATN. Baseline renal function unknown. Renal US negative for hydro/stone. Monitor renal function. Renal prognosis is guarded. Avoid nephrotoxic agents. Meds dosage based on GFR. 2. FEN: Hyperkalemia, improved, monitor. Anion-gap Metabolic acidosis, improving, monitor. Diuretics as needed. Replete lytes as needed. Monitor lytes and volume status. 3. Sepsis, POA: Likely 2/2 Urinary tract infection. Abx per primary. 4. Acute hypoxic respiratory failure, POA: 2/2 Congestive heart Failure. Supplemental O2 as needed. Diuretics. Followed by Cards. 5. Elevated Transaminases, POA: Trend. 6. Type 2 Diabetes with hyperglycemia, POA: SSI and lantus. 7. Normocytic anemia, POA: Trend. 8. Dementia. D/w . F/u with me in 1-2 weeks. Subjective: Patient was seen and examined at the bedside. Examination: General appearance: well-developed, appears stated age, not in distress HEENT: no icterus Neck: trachea midline Respiratory: decreased breath sounds Heart: S1S2, no murmur Abdomen: soft, bowel sounds heard, NT, no palpable mass Integumentary: no obvious rash Neurologic: conversing, able to move extremities, confused Ext: 1+ LE and dependent edema noted, L BKA Subjective Date of service: 08/01/22 Principal diagnosis: Sepsis, NSTEMI type 2?, AMS, GIBRAN, Objective - Vital Signs Vital signs: Vital Signs - 12hr 07/31/22 07/31/22 08/01/22 22:00 23:11 03:44 Temperature 97.4 F L 97.4 F L Pulse Rate 132 H 105 H Respiratory 17 16 Rate Blood Pressure 98/65 103/66 O2 Sat by Pulse 99 100 97 Oximetry - Lab 08/01/22 13:17 08/01/22 13:17 Most recent lab results ABG pH 7.361 pH Units (7.350-7.450) 07/29/22 23:55 ABG pCO2 23.7 mm Hg 07/29/22 23:55 ABG pO2 107.0 mm Hg (80.0-90.0) H 07/29/22 23:55 ABG HCO3 13.1 mmol/L (20.0-26.0) L 07/29/22 23:55 ABG O2 Saturation 97.9 % (95.0-99.0) 07/29/22 23:55 Calcium 9.1 mg/dL (8.4-10.2) 07/31/22 05:35 Magnesium 2.90 mg/dL (1.7-2.3) H 07/29/22 14:57 Urine Creatinine 75.6 mg/dL (0.1-20.0) H 07/30/22 11:12 Urine Sodium 10 mmol/L 07/30/22 11:12 Medications & Allergies - Medications Allergies/Adverse Reactions: Allergies Penicillins Adverse Reaction (Verified 07/31/22 16:31) Unknown "childhood allergy" Home Medications: Home Medications Medication Instructions Recorded Confirmed Last Taken Type Ascorbic Acid [Vitamin C with Chana 500 mg PO QDAY 07/30/22 07/31/22 Unknown History Hips] AtorvaSTATin [Lipitor] 20 mg PO DAILY 07/30/22 07/31/22 Unknown History Cholecalciferol Vit D3 [Vitamin D3 1,000 unit PO QDAY 07/30/22 07/31/22 Unknown History 1,000 UNIT TAB] Cyanocobalamin (Vitamin B-12) 3,000 mcg PO QDAY 07/30/22 07/31/22 Unknown History [Vitamin B-12] Dapagliflozin Propanediol [Farxiga] 1 tab PO DAILY 07/30/22 07/31/22 Unknown History Finasteride [Proscar] 5 mg PO QDAY 07/30/22 07/31/22 Unknown History Fludrocortisone [Florinef Tab] 0.1 mg PO QDAY 07/30/22 07/31/22 Unknown History Furosemide [Lasix] 20 mg PO 3XW 07/30/22 07/31/22 Unknown History Insulin Detemir [Levemir Flextouch] 15 units SQ DAILY 07/30/22 07/31/22 Unknown History Insulin Glargine [Lantus VIAL] 10 units SQ QHS 07/30/22 07/31/22 Unknown History Insulin Lispro [Humalog] 1 - 18 unit SQ Q4H 07/30/22 07/31/22 Unknown History Latanoprost 0.005% 1 drop OU QPM 07/30/22 07/31/22 Unknown History Lisinopril [Zestril] 5 mg PO BID 07/30/22 07/31/22 Unknown History Magnesium 400 mg PO QDAY 07/30/22 07/31/22 Unknown History Midodrine [Proamatine] 10 mg PO Q8HR 07/30/22 07/31/22 Unknown History Nystatin Cream [Mycostatin Cream] 1 applic TP BID 07/30/22 07/31/22 Unknown History Potassium Chloride [K-Dur] 20 meq PO BID 07/30/22 07/31/22 Unknown History Sitagliptin Phosphate [Januvia] 100 mg PO DAILY 07/30/22 07/31/22 Unknown History carvediloL [Coreg] 3.125 mg PO BID 07/30/22 07/31/22 Unknown History oxyCODONE /ACETAMINOPHEN [Percocet 1 tab PO Q4HR PRN 07/30/22 07/31/22 Unknown History 5/325] Apixaban [Eliquis] 5 mg PO BID 07/31/22 07/31/22 Unknown History Aspirin [Adult Aspirin] 81 mg PO QDAY 07/31/22 07/31/22 Unknown History levoFLOXacin [Levaquin TAB] 250 mg PO Q24HR 3 Days #3 tablet 08/01/22 Unknown Rx Active Medications: Generic Name Dose Route Start Last Admin Trade Name Freq PRN Reason Stop Dose Admin Albuterol 2.5 mg 07/29/22 17:23 Albuterol 2.5 Mg/3 Ml Nebu IH Q3HRT PRN Shortness Of Breath Apixaban 2.5 mg 07/30/22 22:00 07/31/22 21:40 Apixaban 2.5 Mg Tab PO 2.5 mg Q12HR YUSRA Administration Protocol Dextrose 50 ml 07/30/22 15:02 Dextrose 50% In Water (25gm) 50 Ml Syringe IV Q30MIN PRN Hypoglycemia Protocol Hydromorphone HCl 0.5 mg 07/29/22 17:23 Hydromorphone 0.5 Mg/0.5 Ml Inj IV Q13H PRN Pain , Severe (7-10) Hydromorphone HCl 0.25 mg 07/29/22 17:27 Hydromorphone 0.5 Mg/0.5 Ml Inj IV Q4H PRN Pain, Moderate (4-6) Insulin Glargine 20 units 07/31/22 22:00 07/31/22 22:46 Insulin Glargine 100 Units/Ml SUB-Q 20 units QHS YUSRA Administration Insulin Human Lispro 0 unit 07/30/22 16:30 07/31/22 22:47 Insulin Lispro 100 Unit/Ml SUB-Q 6 unit ACHS YUSRA Administration Protocol Levofloxacin 250 mg 08/01/22 10:00 Levofloxacin 250 Mg Tab PO 08/04/22 10:01 Q24HR [facility] Protocol Oxycodone/Acetaminophen 1 tab 07/29/22 17:23 07/31/22 11:03 Oxycodone /Acetaminophen 5-325mg Tab PO 1 tab Q6H PRN Administration Pain, Moderate (4-6) Sodium Chloride 10 ml 07/29/22 22:00 07/31/22 21:41 Sodium Chloride 0.9% 10 Ml Flush Syringe IV 10 ml BID YUSRA Administration Sodium Chloride 10 ml 07/29/22 17:23 Sodium Chloride 0.9% 10 Ml Flush Syringe IV PRN PRN LINE FLUSH
[2022-08-01] MEDS: INSULIN LISPRO 100 UNIT/ML SUB-Q SCH ×3 (09:28→19:32)
[2022-08-01] MEDS: APIXABAN 2.5 MG TAB PO SCH (09:28)
[2022-08-01] MEDS ORDERED: ASPIRIN 81 MG TAB CHEW PO SCH (10:00)
[2022-08-01] MEDS ORDERED: levoFLOXacin 250 MG TAB PO SCH (10:00)
--- NOTE | 2022-08-01 12:21 | Progress Note ---
Assessment and Plan Patient is a 76-year-old male with a past medical history of CAD, hypertension, Parkinson's disease, history of TIA, history of PE(previously anticoagulated on Eliquis stopped due to hematuria), diabetes, hyperlipidemia, dementia, ASD who was brought to the ED for shortness of breath and diaphoresis x1 day Altered mental status in setting of known dementia and sepsis. * Management per primary team NSTEMI suspect type II * EKG shows no acute ischemic changes. Suspect type II in setting of GIBRAN, lactic acidosis, sepsis * Conservative cardiac management Acute on chronic heart failure reduced ejection fraction in setting of cardiomyopathy * Echo 07/29/2022-EF 25 to 30%. Left ventricle is moderately dilated. Mild aortic regurgitation. Mild mitral regurgitation. No pericardial effusion. Moderate pleural effusion * Patient is near euvolemia. Agree with holding diuretic. * Will resume GDMT once clinically stable. No beta-harry/nephrotoxic agents due to soft BPs and GIBRAN. No statin due to elevated LFTs History of PE * Anticoagulated with Eliquis 2.5 mg twice daily. Previously discontinued due to hematuria. Due to patient mental status and current Co. morbidities recommend conservative cardiac management. We will follow Patient seen in conjunction with Dr. Rees who agrees with plan of care - Patient Problems (1) GIBRAN (acute kidney injury) Current Visit: Yes Status: Acute (2) Acute hypoxemic respiratory failure Current Visit: Yes Status: Acute (3) UTI (urinary tract infection) Current Visit: Yes Status: Acute Qualifiers: Encounter type: initial encounter (4) Metabolic acidosis Current Visit: Yes Status: Acute (5) Vascular dementia Current Visit: Yes Status: Acute (6) Cerebral atherosclerosis Current Visit: Yes Status: Acute (7) Acute kidney injury (GIBRAN) with acute tubular necrosis (ATN) Current Visit: Yes Status: Acute Subjective Date of service: 08/01/22 Principal diagnosis: Sepsis, NSTEMI type 2?, AMS, GIBRAN, Interval history: Patient resting comfortably in bed. Patient is mildly disoriented but able to answer questions and follow directions appropriately. Telemetry shows sinus tach heart rate 101 no events overnight. Objective Last Vital Signs Temp 98.7 F 08/01/22 07:41 Pulse 104 H 08/01/22 07:41 Resp 16 08/01/22 03:44 BP 89/64 08/01/22 07:41 Pulse Ox 98 08/01/22 07:41 - Physical Examination General: No Apparent Distress HEENT: Positive: PERRL Neck: Positive: trachea midline Cardiac: Positive: Regular Rhythm Lungs: Positive: Normal Exam Neuro: Positive: Grossly Intact Abdomen: Positive: Soft Skin: Negative: Rash, Suspicious Lesions, Ulceration Extremities: Absent: edema - Imaging and Cardiology Echo: report reviewed - Telemetry EKG Rhythm: Sinus Tachycardia - EKG Sinus rhythms and dysrhythmias: sinus tachycardia Repolarization changes or abnormalities: ST or T wave suggestive of ischemia
[2022-08-01 13:45] LABS: Albumin 3.5 g/dL (3.9-5); Calcium 9.1 mg/dL (8.4-10.2)
[2022-08-01 13:53] LABS: Basophils % (Auto) 0.3 % (0.0-1.8); Eosinophils % (Auto) 0.2 % (0.0-4.3); Hematocrit 32.2 % (35.5-45.6); Hemoglobin 9.9 gm/dl (11.8-15.2); Lymphocytes # (Auto) 1.1 K/mm3 (1.2-5.4); Lymphocytes % (Auto) 9.5 % (13.4-35.0); Mean Corpuscular HGB Conc 31 % (32-34); Mean Corpuscular Volume 88 fl (84-94); Monocytes # (Auto) 1.1 K/mm3 (0.0-0.8); Monocytes % (Auto) 9.5 % (0.0-7.3); Platelet Count 233 K/mm3 (140-440); Red Blood Count 3.66 M/mm3 (3.65-5.03); Red Cell Distribution Width 17.9 % (13.2-15.2)
--- NOTE | 2022-08-01 14:37 | Discharge Summary ---
Providers - Providers Date of Admission: 07/29/22 17:23 Date of discharge: 08/01/22 Attending physician: SHERLY VASQUEZ MD 07/29/22 17:30 Consult to Cardiology [CONS] Routine Consulting Provider: ERWIN HERNANDEZ Reason For Exam: chf 07/29/22 17:31 Consult to Physician [CONS] Routine Comment: Consulting Provider: VINICIO GAMBOA Physician Instructions: Reason For Exam: gibran 07/30/22 01:17 Consult to Dietitian/Nutrition [CONS] Routine Physician Instructions: Reason For Exam: Reason for Consult: Poor oral intake Primary care physician: THEODORE OBRIEN Hospitalization Reason for admission: fever, malaise Condition: Stable Hospital course: History of present illness: 76 YO Male with Vascular Dementia, Cerebral Atherosclerosis presents ED for evaluation. Patient reports "I do not feel good and I am short of breath. Patient provides minimal history and is assisted by his and providing history who was at bedside during exam and interview. Patient states that he has experienced generalized weakness, subjective fever, and shortness of breath over the past few days with persistent symptoms over the same timeframe. Patient acknowledges decreased exercise tolerance, dyspnea on exertion, tension at rest, orthopnea, paroxysmal nocturnal dyspnea, subjective fever, subjective weight gain, as well as lower extremity edema. EMS was notified and upon arrival the patient was found to be in distress with a pulse oximetry of 88% on room air. Patient was placed on submental oxygen and transported to [facility] for further care and evaluation of the aforementioned symptoms. The patient was seen and evaluated in the emergency department. All lab and imaging studies reviewed. Patient found to have a pulse oximetry of 87% on room air which is consistent with acute hypoxemic respiratory failure. Patient also found to have urinary tract infection complicated by sepsis, metabolic acidosis, toxic metabolic encephalopathy, GIBRAN with ATN, as well as symptoms and lab findings consistent with CHF decompensation. Patient admitted to [facility] and initiated on sepsis protocol as well as CHF protocol. Patient denies chills, chest pain, palpitation, productive cough, skin rash, recent contact, known exposure to COVID-19. No prior admission for review. No medication listed at time of admission for reconciliation. Advanced care planning conducted in ED. Hospital course: 07/31: Hypotensive this AM but asymptomatic. Appears nearly euvolemic. Renal function slightly worse 2.6. Lasix on hold. Potassium improved to 4.3. GDMT on hold due to hypotension. Cardiology and nephrology recommendations noted. 08/01: Renal function stable. suspect patient has ckd and not an GIBRAN. Discussed with nephrology. ok to d/c. Advised to follow up outpatient with nephrology and cardiology. Discharge home on levaquin. Assessment and Plan: #Sepsis POA #Urinary tract infection - LA 4.2, tachycardic, source urinary - UA wbc: 182 - AB.36/23/107/13 on 21%fio2 - levaquin IV for empiric tx. allergy to PCN noteds - IVF - Bcx, UCx #Acute hypoxic respiratory failure (resolved) #Acute on Chronic Systolic Congestive heart Failure - currently on 2l/min nc. - cxr: mild chf - resume home lasix - echo LVEF 25-30%, global hypokinesis - GDMT on hold currenlty due to hypotension - may give albumin + lasix trial tomorrow if renal function can tolerate. #History of Pulmonary embolism #History of Hematuria - ok to resume Eliquis per d/w cardiology - restart home Eliquis 2.5 mg po bid. - has history of hematuria was told to stop asa and keep eliquis per family info provided. - holding asa unless cardiology would like patient to remain on this. #Acute kidney injury with acute tubular necrosis ruled out #Chronic kidney disease #Metabolic acidosis #Cardiorenal syndrome #hyperkalemia - IVF rehydration - Cr: 2.4 on admisison, now 2.6, stable on last three bmp - nephrology consultation - trend serial bmp. - renal US: negative for acute findings #Transaminitis - monitor, AST/ALT in 200's. -worsened today, hold statin at this time - avoid hepatotoxins. #Vascular dementia #Cerebral atherosclerosis #Type 2 Diabetes with hyperglycemia - takes farxiga and januvia per - SSI and lantus while hospitalized #Advance care planning Disease education conducted, care plan discussed, diagnoses discussed, prognosis discussed, patient is full code, patient acknowledges understanding and agree with care plan, +30 minutes. dispo: Discharge home once medically stable. Disposition: HOME / SELF CARE / HOMELESS Final Discharge Diagnosis (Prints w/discharge instructions): sepsis poa, uti, Chronic kidney disease Time spent for discharge: 35 Core Measure Documentation - Palliative Care Palliative Care/ Comfort Measures: Not Applicable - Core Measures Any of the following diagnoses?: none Exam - Physical Exam Narrative exam: Physical Exam: VITAL SIGNS: Reviewed. GENERAL: The patient appears normally developed, Vital signs as documented. HEAD: No signs of head trauma. EYES: Pupils are equal. Extraocular motions intact. EARS: Hearing grossly intact. MOUTH: Oropharynx is normal. NECK: No adenopathy, no JVD. CHEST: Chest with clear breath sounds bilaterally. No wheezes, rales, or rhonchi. CARDIAC: Regular rate and rhythm. S1 and S2, without murmurs, gallops, or rubs. VASCULAR: No Edema. Peripheral pulses normal and equal in all extremities. ABDOMEN: Soft, non tender and non distended. No rebound or guarding, and no masses palpated. Bowel Sounds normal. MUSCULOSKELETAL: Good range of motion of all major joints. Extremities without clubbing, cyanosis or edema. NEUROLOGIC EXAM: Alert and oriented x 4. no focal sensory or strength deficits. PSYCHIATRIC: Mood normal. SKIN: detail exam as documented in skin assessment - Constitutional Vitals: Temp Pulse Resp BP Pulse Ox 98.7 F 104 H 16 89/64 98 08/01/22 07:41 08/01/22 07:41 08/01/22 03:44 08/01/22 07:41 08/01/22 07:41 Plan Follow up with: THEODORE OBRIEN MD [Primary Care Provider] - 3-5 Days Prescriptions: levoFLOXacin [Levaquin TAB] 250 mg PO Q24HR 3 Days #3 tablet
[2022-08-01 20:10] VITALS: BP 97/63
== END 2022-08-01 20:50 | disposition home health service (06) | DRG 871 ==
LOC: ED 10:11 → IMCU 17:23 → 4A 07-31 00:10
PROVIDERS: ADMIT Internal Medicine; ATTEND Internal Medicine
PROC: 4A033R1 Measurement of Arterial Saturation, Peripheral, Percutaneous Approach (ICD-10-PCS; principal; 2022-07-29)
DX: A41.9 Sepsis, unspecified organism (principal); G92.8 Other toxic encephalopathy; I50.23 Acute on chronic systolic (congestive) heart failure; J96.01 Acute respiratory failure with hypoxia; N39.0 Urinary tract infection, site not specified; I13.0 Hypertensive heart and chronic kidney disease with heart failure and stage 1 through stage 4 chronic kidney disease, or unspecified chronic kidney disease; F01.51 Vascular dementia, unspecified severity, with behavioral disturbance; I42.9 Cardiomyopathy, unspecified; N18.9 Chronic kidney disease, unspecified; I67.2 Cerebral atherosclerosis; I48.0 Paroxysmal atrial fibrillation; E87.5 Hyperkalemia; E11.65 Type 2 diabetes mellitus with hyperglycemia; E11.22 Type 2 diabetes mellitus with diabetic chronic kidney disease; I25.10 Atherosclerotic heart disease of native coronary artery without angina pectoris; G20 Parkinson's disease; E78.5 Hyperlipidemia, unspecified; Z79.82 Long term (current) use of aspirin; Z86.711 Personal history of pulmonary embolism; Z79.4 Long term (current) use of insulin; Z88.0 Allergy status to penicillin; Z89.512 Acquired absence of left leg below knee; Z82.49 Family history of ischemic heart disease and other diseases of the circulatory system; Z79.899 Other long term (current) drug therapy
CPT/HCPCS: 36415; 36600; 71045; 76770; 80048; 80053; 80061; 81001; 82140; 82565; 82570; 82803; 82962; 83735; 83880; 84300; 84484; 85025; 85027; 85610; 85730; 86850; 86900; 86901; 87040; 87116; 87641; 93005; 93306; 94640; 96374; 99285; G0378; J3490; Q9967; C8929; J1815; J1940; J1956; J7040; J7070